=== PATIENT | male | born 1975 | race Caucasian/White ===

== ENCOUNTER 2016-10-23 09:39 | Emergency (ER) | payer BC ==
[2016-10-23] MEDS ORDERED: LORAZEPAM 1 MG TABLET PO ONE (11:22)
[2016-10-23] MEDS ORDERED: PROMETHAZINE HCL 25 MG TABLET PO ONE (11:22)
[2016-10-23] MEDS ORDERED: OXYCODONE-ACETAMINOPHEN 5-325 MG TABLET PO ONE (11:22)
--- NOTE | 2016-10-23 12:29 | ER Document Report ---
ED Neck/Back Problem - General Chief Complaint: Back Pain Stated Complaint: SHOULDER PAIN Notes: Patient is complaining of pain in the upper thoracic spine since he injured himself while weightlifting yesterday morning. Patient says he was doing a bilateral dumbbell curl and when he got up to the chest level he rotated his hands and did a press and as he was pressing upward, he felt a "pop" in the upper thoracic spine region with severe pain. He continues to have pain in that location, especially with moving his neck, but he does not have pain in his neck. He went to a local urgent care yesterday where he had plain x-rays done which were read by a PA on duty who advised him he needed to see an orthopedic surgeon. He was referred to Dr. Heredia, but patient was advised to come here today to be sure he doesn't have an injury requiring immediate care. I spoke with Dr. Heredia who requested that the patient have an MRI of the C- spine and T-spine. Besides the pain in the upper thoracic spine, "between my shoulder blades" and some pain in the lower neck and upper T-spine when he attempts to flex or move it, but more pain down in the area between his shoulder blades when he moves his head, the patient only describes having some numbness in the right arm if he raises that arm, such as putting that arm on the back of the passenger seat of the car while he is driving. While sitting still on the stretcher, the patient does not complain of the severe pain, but if he attempts to move, such as taking his shirt off, or to turn his head, he continues to have his primary pain in the upper and mid never had this problem or any problem with his spine in the past. Thoracic spine region. TRAVEL OUTSIDE OF THE [place] IN LAST 30 DAYS: No - Related Data Allergies/Adverse Reactions: haloperidol [From Haldol] Allergy (Verified 10/23/16 09:47) prochlorperazine [From Compazine] Allergy (Verified 10/23/16 09:47) Past Medical History - Social History Smoking Status: Never Smoker Cigarette use (# per day): No Chew tobacco use (# tins/day): No Frequency of alcohol use: Occasional Drug Abuse: None Family History: Reviewed & Not Pertinent Patient has suicidal ideation: No Patient has homicidal ideation: No Musculoskeltal Medical History: Denies Hx Arthritis - Immunizations Hx Diphtheria, Pertussis, Tetanus Vaccination: Yes Review of Systems - Review of Systems Notes: REVIEW OF SYSTEMS: CONSTITUTIONAL : Denies fever. EENT: Denies eye, ear, nose or mouth or throat pain or other symptoms. CARDIOVASCULAR: Denies chest pain. RESPIRATORY: Denies cough, chest congestion, or shortness of breath. GASTROINTESTINAL: Denies abdominal pain or nausea, vomiting, or diarrhea. GENITOURINARY: Denies difficulty or painful urinating, urinary frequency, blood in urine. MUSCULOSKELETAL: See history of present illness. Denies joint pain or swelling. SKIN: Denies rash or skin lesions. NEUROLOGICAL: Denies LOC or altered mental status. Denies headache. Denies sensory loss (except for the numbness of his right arm described in history of present illness) nor motor deficits. PSYCHIATRIC: Denies anxiety or stress. Denies depression. ALL OTHER SYSTEMS REVIEWED AND NEGATIVE. Physical Exam - Vital signs Vitals: Temp Pulse Resp BP Pulse Ox 98.1 F 79 22 H 153/114 H 98 10/23/16 09:47 10/23/16 09:47 10/23/16 09:47 10/23/16 09:47 10/23/16 09:47 Interpretation: Normal, Hypertensive - Moderate - Notes Notes: PHYSICAL EXAMINATION: GENERAL: Well-appearing, in no acute distress. Essentially normal vital signs, except for blood pressures moderately elevated. Patient appears to be in pain to move, to take off his jacket, etc. HEAD: Atraumatic, normocephalic. EYES: Pupils equal round and reactive to light, extraocular movements intact. ENT: oropharynx clear without exudates. Moist mucous membranes. NECK: Normal range of motion, supple. No posterior midline tenderness of the C- spine. LUNGS: Breath sounds clear and equal bilaterally. HEART: Regular rate and rhythm without murmurs. ABDOMEN: Soft, nontender. No guarding or rebound. BACK: Tender to palpate in the lower cervical and upper and mid thoracic spine region EXTREMITIES: Normal range of motion without pain. NEUROLOGICAL: Normal speech, normal gait. Normal sensory, motor, and reflex exams. Awake, alert, and oriented x3. Cranial nerves normal. SKIN: Warm, dry, no rashes. Course - Re-evaluation Re-evalutation: 10/23/16 12:33 I made several calls, including an urgent care that the patient did not go to, but learned that myself when I'm call the place twice. Then found the urgent care the patient did go to an talk to them and then finally spoke with Dr. Heredia. - Vital Signs Vital signs: Temp Pulse Resp BP Pulse Ox 98.1 F 79 16 153/114 H 98 10/23/16 09:47 10/23/16 09:47 10/23/16 11:10 10/23/16 09:47 10/23/16 09:47 - Diagnostic Test Radiology reviewed: Image reviewed, Reports reviewed - MRI of the C-spine and T- spine show some mild degenerative changes, but no acute processes. No malalignment of the vertebrae. No fractures. No significant spinal stenosis. Discharge - Discharge Clinical Impression: Thoracic back pain Qualifiers: Chronicity: acute Back pain laterality: midline Qualified Code(s): M54.6 - Pain in thoracic spine Cervical muscle strain Qualifiers: Encounter type: initial encounter Qualified Code(s): S16.1XXA - Strain of muscle, fascia and tendon at neck level, initial encounter Condition: Stable Disposition: HOME, SELF-CARE Additional Instructions: NECK INJURY (CERVICAL STRAIN): You have a neck strain. This is an injury to the muscles and ligaments in the neck. There is no evidence of a fracture of the neck bones. Also, no injury to the spinal cord or nerve roots was detected. Usually, stiffness and pain INCREASE for the first 24-48 hours after the injury. The pain will gradually resolve and the neck will become more mobile. Most patients are back at work or school within a few days. Typically, complete healing takes about two or three weeks. The usual initial treatment is rest and cold packs. A neck collar may be placed to keep the muscles of the neck at rest. Antiinflammatory and muscle relaxing medication are often used to reduce the spasm and irritation. You should call the doctor, or go to the hospital, if you develop numbness or weakness in any extremity, problems with your bladder or bowel, or pain radiating down the arms. MUSCLE STRAIN: You have strained a muscle -- torn the fibers within the muscle. This often occurs with strenuous exertion, or during an injury that suddenly stretches the muscle. The seriousness of a strain varies. Some strains heal within days, others cause problems for months. X-rays cannot show a muscle strain. X-rays are taken only if symptoms suggest that a fracture could be present. The usual treatment of a muscle strain is rest and ice packs. Sometimes, a sling, splint, or crutches may be necessary to rest the muscle. The muscle can be used again once pain subsides. Severe strains require a special exercise and stretching program to prevent permanent stiffness and disability. Your doctor will advise you if this will be necessary. Call the doctor immediately if pain or swelling becomes severe, or if numbness or discoloration develop. ICE PACKS: Apply ice packs frequently against the painful area. Many different schedules are recommended, such as "20 minutes on, 20 minutes off" or "one hour ice, two hours rest." If you need to work, you may need to go longer between ice treatments. You should plan to have the area ice packed AT LEAST one fourth of the time. The ice should be applied over the wrap, tape, or splint, or over a layer of cloth -- not directly against the skin. Some ice bags have a built-in cloth and can be put directly on the skin. WARM PACKS: After approximately two days, apply gentle heat (such as a heating pad or hot water bottle) for about 20 to 30 minutes about every two hours -- at least four times daily. Warmth and elevation will help you make a more rapid recovery , and will ease the pain considerably. Do not use HOT heat, and never apply heat for longer than 30 minutes. The continuous heat can invisibly damage skin and muscles -- even when no burn is seen on the surface. Damaged muscles can make you MORE sore. MUSCLE RELAXERS: Muscle relaxing medications are usually prescribed for acute muscle spasm or injury to the neck and back. They are often combined with antiinflammatory pain medication for increased relief. You may stop the muscle relaxer when the pain and stiffness have improved. Start the medication again if spasms recur. Muscle relaxers may cause drowsiness, especially with the first dose. Do not operate machinery or drive while under the effects of the medication. Most muscle relaxers last up to 24 hours. Do not combine the medication with alcohol. ORAL NARCOTIC MEDICATION: You have been given a prescription for pain control. This medication is a narcotic. It's best taken with food, as nausea can result if taken on an empty stomach. Don't operate machinery or drive within six hours of taking this medication. Do not combine this medicine with alcohol, or with any medication which can cause sedation (such as cold tablets or sleeping pills) unless you get permission from the physician. Narcotics tend to cause constipation. If possible, drink plenty of fluids and eat a diet high in fiber and fruits. FOLLOW-UP CARE: If you have been referred to a physician for follow-up care, call the physician s office for an appointment as you were instructed or within the next two days. If you experience worsening or a significant change in your symptoms, notify the physician immediately or return to the Emergency Department at any time for re-evaluation. Avoid any weight lifting that puts any stress at all on your back for at least 2 weeks. Then, resume lifting at a very light weight and gradually increase your weights over a several week time frame. Prescriptions: Oxycodone HCl/Acetaminophen [Percocet 5-325 mg Tablet] 1 - 2 tab PO Q4HP PRN # 25 tablet PRN Reason: Methocarbamol [Robaxin 500 mg Tablet] 1,000 mg PO QID #60 tablet Forms: Return to Work Referrals: ABHAY MERCADO MD [ASSOCIATE] - Follow up as needed
[2016-10-23 14:36] VITALS: BP 151/100
== END 2016-10-23 14:38 | disposition home or self-care (01) ==
LOC: ER 09:39
DX: S16.1XXA Strain of muscle, fascia and tendon at neck level, initial encounter (principal); M54.9 Dorsalgia, unspecified; M54.6 Pain in thoracic spine; M25.519 Pain in unspecified shoulder; X58.XXXA Exposure to other specified factors, initial encounter
CPT/HCPCS: 72141; 72146; 99283

== ENCOUNTER 2017-04-16 23:07 | Inpatient (IN) | payer BC ==
[2017-04-17] MEDS ORDERED: VANCOMYCIN HCL INJ 1000 MG VIAL IV ONE (00:01)
--- NOTE | 2017-04-17 00:14 | ER Document Report ---
ED General - General Chief Complaint: Arm Problem Stated Complaint: RIGHT ARM PAIN Time Seen by Provider: 04/16/17 23:56 Notes: 41-year-old male with a history of intravenous/injection methamphetamine use presents with right antecubital arm pain redness and swelling onset yesterday constant worsening associated with chills. He swears he has not used in 90 days but he did miss a vein at that time. He does not have any history of infection or endocarditis. TRAVEL OUTSIDE OF THE [place] IN LAST 30 DAYS: No - Related Data Allergies/Adverse Reactions: haloperidol [From Haldol] Allergy (Verified 10/23/16 09:47) prochlorperazine [From Compazine] Allergy (Verified 10/23/16 09:47) Past Medical History - General Information source: Patient - Social History Smoking Status: Current Some Day Smoker Drug Abuse: Methamphetamine Family History: Reviewed & Not Pertinent Patient has suicidal ideation: No Patient has homicidal ideation: No Renal/ Medical History: Denies: Hx Peritoneal Dialysis Musculoskeltal Medical History: Denies Hx Arthritis - Immunizations Hx Diphtheria, Pertussis, Tetanus Vaccination: Yes Review of Systems - Review of Systems Notes: REVIEW OF SYSTEMS GEN: Fever ENT: Denies sore throat, nasal discharge, ear pain EYES: Denies blurry vision, eye pain, discharge CV: Denies chest pain, palpitations, edema RESP: Denies cough, shortness of breath, wheezing GI: Denies abdominal pain, nausea, vomiting, diarrhea MSK: Right arm swelling, SKIN: Denies rash, skin lesions LYMPH: Denies swollen glands/lymph nodes NEURO: Denies headache, focal weakness or numbness, dizziness PSYCH: Denies depression, suicidal or homicidal ideation PHYSICAL EXAMINATION General: No acute distress, well-nourished Head: Atraumatic, normocephalic ENT: Mouth normal, oropharynx moist, no exudates or tonsillar enlargement Eyes: Conjunctiva normal, pupils equal, lids normal Neck: No JVD, supple, no guarding CVS: Normal rate, regular rhythm, no murmurs Resp: No resp distress, equal and normal breath sounds bilaterally GI: Nondistended, soft, no tenderness to palpation, no rebound or guarding Ext: Swelling firmness, erythema and warmth of the distal biceps and antecubital area extending to the mid forearm. Compartments are soft with no pain with passive wrist flexion extension. Tenderness in the same area. No fluctuance. Distal pulses intact, distal finger movement intact. Able to range elbow without much pain. Back: No CVA or midline TTP Skin: No rash, warm Lymphatic: No lymphadeopathy noted Neuro: Awake, alert. Face symmetric. GCS 15. Normal sensation in right hand. Physical Exam - Vital signs Vitals: Temp Pulse Resp BP Pulse Ox 99.2 F 94 18 133/83 H 97 04/16/17 23:17 04/16/17 23:17 04/16/17 23:17 04/16/17 23:17 04/16/17 23:17 Course - Re-evaluation Re-evalutation: 04/17/17 00:12 41-year-old male [id number] presents with cellulitis and possible abscess of the right antecubital area. Differential considerations include myositis, less likely necrotizing soft tissue infection given his normal vital signs and his lack of pain out of proportion. I will obtain a formal ultrasound to rule out drainable abscess but my bedside ultrasound does not show one. Will elevate aggressively get labs cultures give vancomycin and morphine, and we will need admission for aggressive antibiotic therapy. 04/17/17 00:13 04/17/17 01:05 Labs show mild leukocytosis. Otherwise normal. Feeling better after morphine. Elevated arm. Ultrasound does not show abscess. X-ray negative. Admitted to Dr. Andre at approximately 1 AM he asked except as a full admission to telemetry. - Vital Signs Vital signs: Temp Pulse Resp BP Pulse Ox 99.2 F 94 18 133/83 H 97 04/16/17 23:17 04/16/17 23:17 04/16/17 23:17 04/16/17 23:17 04/16/17 23:17 - Laboratory Result Diagrams: 04/17/17 00:15 Laboratory results interpreted by me: 04/17/17 00:15 WBC 12.3 H Seg Neutrophils % 84.5 H Lymphocytes % 6.5 L Absolute Neutrophils 10.4 H - Diagnostic Test Radiology reviewed: Image reviewed, Reports reviewed Procedures - Ultrasound/Bedside Ultrasound/Bedside Time completed: 00:13 Notes: 04/17/17 00:14 Bedside soft tissue ultrasound of the right arm. Images obtained in 2 planes of the distal biceps and antecubital area. Soft tissue changes consistent with cellulitis are noted. No drainable abscess collection was visualized. Patient tolerated procedure well. Unable to attach images. Discharge - Discharge Clinical Impression: Cellulitis of right arm Condition: Good Disposition: ADMITTED INPATIENT Admitting Provider: Hospitalist Unit Admitted: Telemetry
[2017-04-17] MEDS ORDERED: MORPHINE SULFATE 10 MG/ML INJ IV ONE (00:21)
[2017-04-17 00:31] LABS: ABSOLUTE BASOPHILS # (AUTO) 0.1 10^3/uL (0.0-0.2); ABSOLUTE LYMPHOCYTES (AUTO) 0.8 10^3/uL (0.5-4.7); ABSOLUTE NEUT (AUTO) 10.4 10^3/uL (1.7-8.2); BASOPHILS % (AUTO) 0.4 % (0-2); EOSINOPHILS % (AUTO) 0.4 % (0-6); HEMATOCRIT 43.6 % (37.9-51.0); HEMOGLOBIN 15.1 g/dL (13.5-17.0); HGB HCT DIFFERENCE 1.7; LYMPHOCYTES % (AUTO) 6.5 % (13-45); MEAN CORPUSCULAR HGB CONC 34.6 g/dL (32.0-36.0); MEAN CORPUSCULAR VOLUME 89 fl (80-97); MONOCYTES % (AUTO) 8.2 % (3-13); RED BLOOD COUNT 4.87 10^6/uL (4.35-5.55); RED CELL DISTRIBUTION WIDTH 12.8 % (11.5-14.0); SEGMENTED NEUTROPHILS % (AUTO) 84.5 % (42-78); WHITE BLOOD COUNT 12.3 10^3/uL (4.0-10.5)
--- NOTE | 2017-04-17 00:59 | RADIOLOGY REPORT (SQ) ---
EXAM DESCRIPTION: ELBOW RIGHT AP/LAT COMPLETED DATE/TIME: 04/17/2017 12:35 am REASON FOR STUDY: ac ABSCESS, R/O NEEDLE/GAS COMPARISON: None. NUMBER OF VIEWS: Four views. TECHNIQUE: AP, lateral, and both oblique radiographic images acquired of the right elbow. LIMITATIONS: None. FINDINGS: MINERALIZATION: Normal. BONES: No acute fracture or dislocation. No worrisome bone lesions. Slight osteophyte of the corono id, right ulnar olecranon. JOINT: No effusion. SOFT TISSUES: No soft tissue swelling. No radiopaque foreign body/ needle, and no significant soft t issue emphysema, as queried. OTHER: No other significant finding. IMPRESSION: NEGATIVE STUDY OF THE RIGHT ELBOW. NO RADIOGRAPHIC EVIDENCE OF ACUTE INJURY. TECHNICAL DOCUMENTATION: JOB ID: [id number] [email or web address]- All Rights Reserved
[2017-04-17] MEDS ORDERED: DIPH/PERTUSS(ACELL)/TETANUS VAC/PF 0.5 ML SYR (>=10YO) IM ONE (01:03)
[2017-04-17] MEDS ORDERED: CEFAZOLIN INJ 1 GM VIAL IV ONE (01:05)
--- NOTE | 2017-04-17 01:11 | RADIOLOGY REPORT (SQ) ---
EXAM DESCRIPTION: U/S EXTREMITY NONVASCULAR LTD COMPLETED DATE/TIME: 04/17/2017 12:43 am REASON FOR STUDY: CELLULITIS VS. ABSCESS R AC COMPARISON: None. TECHNIQUE: Static and real time simmons scale ultrasound Doppler spectral analysis, and color Doppler a cquired in the area of symptomatology marked, right arm mid. LIMITATIONS: None. FINDINGS: SOFT TISSUES: No masses. Mild -moderate edema consistent with cellulitis. No evidence of abscess. OTHER:No other significant findings. IMPRESSION: Mild -moderate edema in an area of indicated symptomatology of the right upper extremity /arm. No sonographic evidence of abscess or mass. TECHNICAL DOCUMENTATION: JOB ID: [id number] [email or web address]- All Rights Reserved
[2017-04-17 01:13] LABS: ADD ON TESTING BLD IN LAB ACKNOWLEDGE
[2017-04-17 01:21] LABS: ALANINE AMINOTRANSFERASE 80 U/L (21-72); ALBUMIN 3.9 g/dL (3.5-5.0); ALCOHOL < 10 mg/dL (NONE DETECTED); ALKALINE PHOSPHATASE 48 U/L (38-126); ANION GAP 11 (5-19); ASPARTATE AMINO TRANSFERASE 39 U/L (17-59); BILIRUBIN,DIRECT 0.3 mg/dL (0.0-0.4); BILIRUBIN,TOTAL 0.7 mg/dL (0.2-1.3); BLOOD UREA NITROGEN 19 mg/dL (7-20); CALCIUM 9.2 mg/dL (8.4-10.2); CARBON DIOXIDE 33 mmol/L (22-30); CHLORIDE 93 mmol/L (98-107); CREATININE RESULT 0.94 mg/dL (0.52-1.25); GLUCOSE 80 mg/dL (75-110); MAGNESIUM 1.7 mg/dL (1.6-2.3); POTASSIUM 4.3 mmol/L (3.6-5.0); SODIUM 136.7 mmol/L (137-145)
[2017-04-17] MEDS ORDERED: NICOTINE 7 MG/24 HR PATCH.TD24 TD PRN (02:32)
[2017-04-17] MEDS ORDERED: ACETAMINOPHEN 325 MG TABLET PO PRN (02:34)
[2017-04-17] MEDS ORDERED: OXYCODONE HCL IR 5 MG TABLET PO PRN (02:34)
[2017-04-17] MEDS ORDERED: MAGNESIUM HYDROXIDE SUSP 30 ML UDCUP PO PRN (02:36)
[2017-04-17] MEDS ORDERED: VANCOMYCIN HCL 0 MG in DEXTROSE 5%-WATER 250 ML IV NR (02:45)
[2017-04-17] MEDS ORDERED: CEFAZOLIN 1 GM/D5W RTU 1 GM/50 ML RTUPB IV ONE (03:00)
--- NOTE | 2017-04-17 03:04 | PDOC H&P ---
History of Present Illness Admission Date/PCP: 04/17/17 01:16 Primary care provider none Patient complains of: Right arm pain and swelling History of Present Illness: DRE BALL is a 41 year old male with history of intravenous methamphetamine use, but by his account to both myself and emergency room physician, no use for the past 3-4 months, who presents to the emergency room for evaluation of approximately 24 hour history of increasing redness pain and swelling involving his right upper extremity. Area started in the right antecubital fossa and has progressed. Prominent throbbing and sharp pain, which increases with much of any movement of the extremity, and certainly with any contact with the area of involvement. Positive associated shaking chills. No nausea vomiting, diarrhea or dysuria. Denies any trauma to the site. Patient has been discussed with emergency room physician who evaluated the patient. . Dictation via voice recognition software. Laboratory results are listed in [facility] and are reviewed. X-ray summary results are listed below, with full report(s) reviewed. . Social history/personal habits: Single. Has children. Works at a local [employer]. Chews tobacco. Fifth of whiskey every 2-3 weeks. Marijuana use along with the above-noted history of methamphetamine use. Allergies/adverse reactions are listed in [facility] and are reviewed. Home medications none REVIEW OF SYSTEMS: Constitutional: See history and present illness. Eyes: No vision complaints. ENT: No swallowing problems or complaints. Denies hearing loss. Pulmonary: No current complaints. Cardiovascular: No current complaints, including chest pain. Gastrointestinal: No current complaints, including nausea or vomiting. Skin: See history and present illness. Hematologic: Denies easy bruising. Neurologic: No current complaints, including numbness or tingling. Musculoskeletal: See history and present illness. Psychiatric: Denies anxiety or depression. Endocrine: No current complaints, including polyuria. Genitourinary: No current complaints, including dysuria. PHYSICAL EXAMINATION: 5 feet 6 inches tall. 76.3 kg. BMI 27.1 kg/m. Blood pressure 127/83. 90% saturation on room air. Respirations are 20 and unlabored. Pulse 94 and regular. 99.3 temperature. Slightly overweight but also somewhat stocky otherwise well-developed male appearing approximately his stated age. Pleasant awake alert and cooperative. Appears to feel a bit under the weather, so to speak, primarily due to right upper extremity discomfort and pain. Skin is warm and dry. No grossly obvious evidence of rash in areas of skin examined. No subcutaneous nodules palpated. Extensive upper extremity tattoos. ENT: Hearing grossly normal to normal conversation. Tongue midline on protrusion pink and slightly moist. Eyes: No scleral icterus. Pupils equal and reactive to light at 4 mm. [place] conjunctivae. Neck is supple and nontender to gentle active range of motion and palpation. Midline trachea. No palpable thyroid nodule mass enlargement or tenderness. Lymphatic: No palpable cervical or clavicular nodes. Neck and lymphatic exams limited by patient body habitus. Psychiatric: Reasonable insight into acute and chronic medical issues. Oriented to time location and why here. Lungs: Auscultation reveals clear and equal breath sounds bilaterally. No use of accessory respiratory muscles. Cardiovascular: Heart regular rate and rhythm, without gallop murmur or rub. No carotid or abdominal aortic bruits. No ankle edema. Abdomen:soft slightly distended nontender with positive bowel sounds. Unable to adequately evaluate abdomen for masses or organomegaly due to distention. Extremities: No calf tenderness to compression. No grossly obvious visual evidence of calf swelling. Gentle manipulation of lower extremities fails to reveal any obvious evidence of injury or instability to knees hips or ankles. Right upper extremity exam reveals mild to moderate cellulitis extending from the lower half of the upper arm through the proximal two thirds of the forearm, primarily on the volar surface. Mild soft tissue swelling. Mild to moderate tenderness. No crepitus fluctuance or expressible discharge. No evidence of compartment syndrome. Easily palpable right radial pulse. Neurologic: Moves left upper extremity grossly normally; decreased range of motion right upper extremity at elbow due to area of involvement.. Patellar reflexes absent. Dorsiflexion and plantarflexion of feet 5 / 5 and symmetric. Light touch is intact and symmetric with fingertips of both hands, as is handgrip. Past Medical History Cardiac Medical History: Denies: Atrial Fibrillation, Congestive Heart Failure, Coronary Artery Disease, DVT, Myocardial Infarction, Hyperlipidema, Hypertension, Pulmonary Embolism Pulmonary Medical History: Denies: Asthma, Chronic Obstructive Pulmonary Disease (COPD), Sleep Apnea EENT Medical History: Denies: Eyes, Ears, Throat Neurological Medical History: Reports: Seizures - Childhood epilepsy; 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 No antiepileptic. Denies: Hemorrhagic CVA, Ischemic CVA Endocrine Medical History: Denies: Diabetes Mellitus Type 1, Diabetes Mellitus Type 2, Hyperthyroidism, Hypothyroidism Renal/ Medical History: Reports: None GI Medical History: Denies: Cirrhosis, Gastroesophageal Reflux Disease, Hepatitis, Peptic Ulcer Disease Musculoskeltal Medical History: Denies: Arthritis Skin Medical History: Reports: None Psychiatric Medical History: Reports: Substance Abuse, Tobacco Dependency Denies: Alcohol Dependency, Depression, General Anxiety Disorder Hematology: Reports: None Infectious Medical History: Reports: Clostridium Difficile Denies: Hepatitis B, Hepatitis C, Methicillin-Resistant Staph Aureus Past Surgical History Past Surgical History: Reports: Other - [place] teeth extraction Social History Information Source: Patient, Emergency Med Personnel, [facility] Records Smoking Status: Unknown if Ever Smoked - Chews tobacco. Frequency of Alcohol Use: Heavy - Fifth of whiskey every 2-3 weeks. Hx Recreational Drug Use: Yes Drugs: Marijuana, Other - Methamphetamine - Advance Directive Resuscitation Status: Full Code Surrogate healthcare decision maker:: Brother Manjinder Family History Family History: Reviewed & Not Pertinent Parental Family History Reviewed: Yes - Parents ; mother many health problems; uncertain father's problems Children Family History Reviewed: Yes - Healthy Sibling(s) Family History Reviewed.: Yes - Healthy Medication/Allergy Home Medications: Sulfamethoxazole/Trimethoprim [Bactrim Ds Tablet] 1 each PO BID #20 tablet 04/19 Sulfamethoxazole/Trimethoprim [Bactrim Ds Tablet] 1 each PO BID #20 tablet 04/20 Allergies/Adverse Reactions: haloperidol [From Haldol] Adverse Reaction (Verified 04/20/17 14:37) Dystonia prochlorperazine [From Compazine] Adverse Reaction (Verified 04/20/17 14:37) Dystonia Physical Exam Vital Signs: Temp Pulse Resp BP Pulse Ox 99.2 F 86 20 128/86 H 98 04/16/17 23:17 04/17/17 02:25 04/17/17 02:25 04/17/17 02:25 04/17/17 02:25 Results Impressions: Elbow X-Ray 04/17/17 00:01 IMPRESSION: NEGATIVE STUDY OF THE RIGHT ELBOW. NO RADIOGRAPHIC EVIDENCE OF ACUTE INJURY. Extremity Ultrasound 04/17/17 00:08 IMPRESSION: Mild -moderate edema in an area of indicated symptomatology of the right upper extremity/arm. No sonographic evidence of abscess or mass. Assessment & Plan - Diagnosis (1) Cellulitis of right arm Is this a current diagnosis for this admission?: YesPlan: Keep right arm elevated above level of heart. Ancef and intravenous vancomycin ; pharmacy to assist with vancomycin dosing. Orthopedic consult. I have strongly encouraged patient to be careful getting out of bed without notifying staff, to avoid a fall with injury. Knee high SCDs for DVT prophylaxis, along with subcutaneous Lovenox. Impression and plans were discussed with patient who concurs. Time spent in evaluation and management of patient: 66 minutes. (2) DVT prophylaxis Is this a current diagnosis for this admission?: Yes (3) History of methamphetamine use Is this a current diagnosis for this admission?: YesPlan: Urine drug screen. (4) Tobacco dependency Is this a current diagnosis for this admission?: YesPlan: As needed nicotine patch. (5) Alcohol use Is this a current diagnosis for this admission?: YesPlan: Daily thiamine, multivitamin, and folic acid. Observe closely for evidence of withdrawal. None at present. - Time Time Spent: 50 to 70 Minutes Medications reviewed and adjusted accordingly: Yes Anticipated discharge: Home Within: within 72 hours - Inpatient Certification Based on my medical assessment, after consideration of the patient's comorbidities, presenting symptoms, or acuity I expect that the services needed warrant INPATIENT care.: Yes I certify that my determination is in accordance with my understanding of Medicare's requirements for reasonable and necessary INPATIENT services [42 CFR 412.3e].: Yes Medical Necessity: Need Close Monitoring Due to Risk of Patient Decompensation, Need for IV Antibiotics, Risk of Complication if Not Cared For in Hospital Post Hospital Care: D/C or Transfer Summary
[2017-04-17] MEDS ORDERED: THIAMINE HCL 100 MG TABLET PO ONE (03:30)
[2017-04-17 04:04] LABS: URINE BARBITURATES SCREEN NEGATIVE; URINE METHADONE SCREEN NEGATIVE; URINE PHENCYCLIDINE SCREEN NEGATIVE
[2017-04-17 04:08] LABS: URINE OPIATES LOW UNCONFIRMED POSITIVE
[2017-04-17 06:55] LABS: ABSOLUTE EOSINOPHILS # (AUTO) 0.1 10^3/uL (0.0-0.6); ABSOLUTE LYMPHOCYTES (AUTO) 0.9 10^3/uL (0.5-4.7); ABSOLUTE MONOCYTES (AUTO) 1.1 10^3/uL (0.1-1.4); ABSOLUTE NEUT (AUTO) 10.2 10^3/uL (1.7-8.2); BASOPHILS % (AUTO) 0.3 % (0-2); HEMATOCRIT 43.5 % (37.9-51.0); HGB HCT DIFFERENCE 1.5; LYMPHOCYTES % (AUTO) 7.2 % (13-45); MEAN CORPUSCULAR HEMOGLOBIN 30.8 pg (27.0-33.4); MEAN CORPUSCULAR HGB CONC 34.5 g/dL (32.0-36.0); MEAN CORPUSCULAR VOLUME 89 fl (80-97); MONOCYTES % (AUTO) 8.9 % (3-13); RED BLOOD COUNT 4.88 10^6/uL (4.35-5.55); RED CELL DISTRIBUTION WIDTH 12.5 % (11.5-14.0); SEGMENTED NEUTROPHILS % (AUTO) 82.6 % (42-78); WHITE BLOOD COUNT 12.3 10^3/uL (4.0-10.5)
--- NOTE | 2017-04-17 08:32 | Progress Note ---
Provider Note Provider Note: HELADIOMARIEBUTCH ERICKSON Search Criteria: Last Name 'Dave' and First Name 'dre' and = ' and Request Period = 10/19/16' to 04/17/17' - 3 out of 3 Recipients Selected. Fill Date Product, Str, Form Qty Days Pt ID Prescriber Written RX# N/R* Pharm MED+ ------ ---- --------- --- ------- ----- --------- ------ 11/24/2016 TRAMADOL HCL 50 MG TABLET 30.00 30 [id number] 11/24/2016 [id number] N [id number] 05.0 11/13/2016 TRAMADOL HCL 50 MG TABLET 10.00 10 [id number] 11/13/2016 [id number] N [id number] 05.0 10/23/2016 OXYCODONE-ACETAMINOPHEN 5-325 25.00 4 [id number] 10/23/2016 [id number] N [id number] 46.88 10/22/2016 HYDROCODON-ACETAMINOPHEN 5-325 20.00 5 [id number] 10/22/2016 [id number] N [id number] 20.0 [id number] OMAR URIOSTEGUI; [address] [place] [id number] DRE LANDA MD; [address] [facility], [place] [id number] DRE LEONARD; [facility], [address] [place], [place] [id number] ROSA GANT; [facility], [address] [facility], [address], [place] [id number]
[2017-04-17] MEDS ORDERED: KETOROLAC TROMETHAMINE INJ/PF 30 MG/1 ML SDV IV ONE (08:42)
--- NOTE | 2017-04-17 09:19 | PROGRESS NOTE E ---
Progress Note NAME: DRE BALL : 1975 AGE: 41Y DATE: 04/17/2017 ROOM: 434 SUBJECTIVE: The patient is lying in bed. He was a little groggy when I woke him up. The patient stated that he was sleepy. He stated that the pain was the same in his arm as in comparison to when he came in, in spite of getting antibiotics overnight. The patient has asked for a regular diet as well. The patient denies any nausea, vomiting, diarrhea. No shortness of breath, dizziness, chest pain. No fevers, chills. Patient has been afebrile. His blood pressures have been in a good range, and the patient does not voice any other concerns at this time. REVIEW OF SYSTEMS: Rest of review of systems negative. MEDICATIONS: Medications have been reviewed. OBJECTIVE: GENERAL: The patient is a 41-year-old male who is awake, alert, and oriented to person, place, time, and situation. He is verbal, conversational, does not appear to be in acute distress. VITAL SIGNS: Temperature is 98.5, pulse 91, respirations 14, blood pressure 122/72, oxygen saturation 97% on room air. SKIN: Warm and dry. No rash. She is not diaphoretic. HEENT: Pupils equal, round, and reactive to light and accommodation. Conjunctiva pink. No JVP. CARDIOVASCULAR SYSTEM: Heart is regular. There is no murmur or rub. CHEST: Clear, symmetrical, unlabored. ABDOMEN: Soft, nontender, nondistended. BACK: No CVA tenderness or sacral edema. EXTREMITIES: No clubbing, cyanosis. The patient's right upper extremity, there is redness noted, especially over the antecubital with evidence of deep tissue cellulitis. PSYCHIATRIC: The patient is pretty apathetic. DIAGNOSTICS: Lab values are as follows: Hematology obtained on 04/17/2017: WBCs are 2.3, hemoglobin is 15.0, hematocrit is 43.5, platelet count is 207,000. Chemistry obtained on 04/17/2017: Sodium is 136, potassium 4.3, chloride is 93, carbon dioxide 33, BUN 19, creatinine is 0.94, glucose 80, calcium is 9.2, magnesium is 1.7. Bilirubin is 0.7, AST 39, ALT is 80, Alk phos 48, total protein 7.0, albumin 3.9. Toxicology obtained on 04/17/2017: Opiates are positive, benzos are positive, marijuana is positive. Amphetamines are unable to be assessed due to the poly positives. Blood cultures obtained on 04/17/2017 are pending. IMPRESSION AND PLAN: 1. RIGHT UPPER EXTREMITY CELLULITIS. Will continue coverage. The patient denies a history of MRSA, however, have a high suspicion of this. Therefore, will continue vancomycin. Do appreciate orthopedic input with this. Will keep arm elevated. Will schedule Toradol for inflammation and pain relief and follow. 2. POLYSUBSTANCE ABUSE, INCLUDING OPIATES, BENZOS, AMPHETAMINES, AND THC. Will monitor for evidence of withdrawals. Add p.r.n. benzodiazepines and will discuss treatment goals with the patient follow. 3. TOBACCO DEPENDENCY. Spent 3 minutes discussing smoking cessation, education. The patient has no desire to quit smoking at this time. Will add p.r.n. nicotine patch and follow. 4. DVT PROPHYLAXIS. Will add subcu Lovenox. DISPOSITION: The patient is a FULL CODE. Pending patient's symptomatology and diagnostic findings, will re-evaluate in the a.m. Time spent on this followup including assessment, plan, physical examination, and patient education, review of previous records is 35 minutes. DICTATING PHYSICIAN: TORIBIO MANTILLA NP [id number] [id number] PHY#: [id number] ID: [id number] JOB#: [id number] ACCT: [id number] cc: >
[2017-04-17] MEDS: CEFAZOLIN 1 GM/D5W RTU 1 GM/50 ML RTUPB IV SCH ×2 (09:35→17:59)
[2017-04-17] MEDS: THIAMINE HCL 100 MG TABLET PO SCH (09:36)
[2017-04-17] MEDS: MULTIVITAMIN TABLET PO SCH (09:36)
[2017-04-17] MEDS: FOLIC ACID 1 MG TABLET PO SCH (09:36)
[2017-04-17] MEDS: KETOROLAC TROMETHAMINE INJ/PF 30 MG/1 ML SDV IV SCH ×3 (09:37→20:35)
[2017-04-17] MEDS: DOCUSATE SODIUM 100 MG CAPSULE PO SCH ×2 (09:37→17:58)
[2017-04-17] MEDS: ENOXAPARIN SODIUM INJ 40 MG/0.4 ML DISP.SYRIN SUBCUT SCH (09:38)
[2017-04-17] MEDS: TRAMADOL HCL 50 MG TABLET PO PRN ×3 (09:44→18:18)
[2017-04-17] MEDS: VANCOMYCIN HCL 1,250 MG in DEXTROSE 5%-WATER 250 ML IV SCH (13:40)
[2017-04-18] MEDS: VANCOMYCIN HCL 1,250 MG in DEXTROSE 5%-WATER 250 ML IV SCH ×2 (01:42→12:44)
[2017-04-18] MEDS: CEFAZOLIN 1 GM/D5W RTU 1 GM/50 ML RTUPB IV SCH ×3 (03:40→17:45)
[2017-04-18] MEDS: KETOROLAC TROMETHAMINE INJ/PF 30 MG/1 ML SDV IV SCH ×4 (03:41→21:07)
[2017-04-18] MEDS: TRAMADOL HCL 50 MG TABLET PO PRN (05:38)
[2017-04-18] MEDS ORDERED: SUCCINYLCHOLINE CHLORIDE INJ 200 MG/10 ML VIAL ONE (08:36)
[2017-04-18] MEDS: THIAMINE HCL 100 MG TABLET PO SCH (09:01)
[2017-04-18] MEDS: DOCUSATE SODIUM 100 MG CAPSULE PO SCH ×2 (09:01→17:46)
[2017-04-18] MEDS: MULTIVITAMIN TABLET PO SCH (09:01)
[2017-04-18] MEDS: ENOXAPARIN SODIUM INJ 40 MG/0.4 ML DISP.SYRIN SUBCUT SCH (09:02)
[2017-04-18] MEDS: FOLIC ACID 1 MG TABLET PO SCH (09:02)
--- NOTE | 2017-04-18 09:34 | PROGRESS NOTE E ---
Progress Note NAME: DRE BALL : 1975 AGE: 41Y DATE: 04/18/2017 ROOM: 403 SUBJECTIVE: The patient is currently lying in bed. He states that his arm is not as stiff as it was yesterday, but it continues to be quite painful. Patient denies any nausea, vomiting, diarrhea. No shortness of breath or chest pain. No fevers, chills. Patient has been afebrile. His blood pressure has been in a good range. Patient does not voice any other concerns at this time. REVIEW OF SYSTEMS: Rest of review of systems negative. MEDICATIONS: Medications have been reviewed. OBJECTIVE: GENERAL: The patient is a 41-year-old male who is awake, alert, and oriented to person, place, time, and situation. He is verbal, conversational, does not appear to be in acute distress. VITAL SIGNS: Temperature is 98.1, pulse 82, respirations 18, blood pressure 128/80, oxygen saturation 98% on room air. SKIN: Warm and dry. No rash. He is not diaphoretic. HEENT: Pupils equal, round, and reactive to light and accommodation. Conjunctivae pink. No JVP. CARDIOVASCULAR SYSTEM: Heart is regular. There is no murmur or rub. CHEST: Clear, symmetrical, unlabored. ABDOMEN: Soft, nontender, nondistended. BACK: No CVA tenderness or sacral edema. EXTREMITIES: No clubbing, cyanosis. At the patient's right antecubital region there is evidence of redness and tightness which may correlate with underlying abscess with pustules noted at most likely an injection site. DIAGNOSTICS: Lab values are as follows: Hematology obtained on 04/17/2017: WBCs are 12.3, hemoglobin is 15.0, hematocrit is 43.5, platelet count is 207,000. Chemistry obtained on 04/17/2017: Sodium is 136, potassium 4.3, chloride is 93, carbon dioxide 33, BUN 19, creatinine is 0.94, glucose 80, calcium is 9.2, magnesium is 1.7. Bilirubin is 0.7, AST 39, ALT is 80, Alk phos 48, total protein 7.0, albumin 3.9. IMPRESSION AND PLAN: 1. RIGHT UPPER EXTREMITY CELLULITIS. The patient's ultrasound did not reveal any definite abscess, however, in spite of 24 hours of IV antibiotics the areas are reddened and pustules are now noted. I do have a high suspicion for this. Will continue vancomycin as he is high risk for MRSA, but fortunately blood cultures have been negative. Will continued scheduled Toradol for inflammation and pain relief. Will consult Surgery as this may require I and D. 2. POLYSUBSTANCE ABUSE, INCLUDING BENZODIAZEPINES, AMPHETAMINES, AND THC. Will monitor for evidence of withdrawals. At this time, the patient is comfortable. 3. TOBACCO DEPENDENCY. Will continue p.r.n. nicotine patch. 4. DEEP VENOUS THROMBOSIS PROPHYLAXIS. Will continue subcutaneous Lovenox. DISPOSITION: The patient is a FULL CODE. Pending patient's symptomatology and diagnostic findings, will re-evaluate in the a.m. Time spent on this followup including assessment, plan, physical examination, and patient education, and specialty collaboration is 25 minutes. DICTATING PHYSICIAN: TORIBIO MANTILLA NP [id number] [id number] PHY#: [id number] ID: [id number] JOB#: [id number] ACCT: [id number] cc: >
--- NOTE | 2017-04-18 12:18 | CONSULTATION REPORT E ---
Consultation Report NAME: DRE BALL : 1975 AGE: 41Y DATE: 04/18/2017 ROOM: 403 A TO: CICI WEBB M.D. FROM: DELIA RAMIREZ M.D. Requesting Physician HISTORY OF PRESENT ILLNESS: A 41-year-old male patient with a consultation for evaluation and management of right arm cellulitis. The patient is admitted with a history of swelling and pain in the right forearm antecubital area for the last 2 days. Patient unable to give any clear history how it started. He denies any history of IV drug abuse and denies any history of insect bite. He woke up with swelling and pain in that area. PAST MEDICAL HISTORY: The patient's past medical problems: No major medical issues. PAST SURGICAL HISTORY: None. REVIEW OF SYSTEMS: as per exam PHYSICAL EXAMINATION: GENERAL: A gentleman not in any distress, afebrile. HEAD AND NECK: No lymphadenopathy. No masses. CHEST AND LUNGS: Both lungs are clear to auscultation. CARDIOVASCULAR: Both heart sounds regular. No murmurs. No gallops. ABDOMEN: Soft abdomen and nontender. No masses palpable. No hernia. EXTREMITIES: Warm. Well perfused. His right upper extremity around the elbow, antecubital area, there is swelling and induration with tenderness present, which is indicative of cellulitis. Distally, the forearm appears to be normal . No neurovascular deficits. IMPRESSION: Cellulitis of the antecubital area, along with abscess formation. PLAN: Continue antibiotic, n.p.o. Will plan for incision and drainage of this area. DICTATING PHYSICIAN: CICI WEBB M.D. [id number] PHY#: [id number] ID: [id number] JOB#: [id number] ACCT: [id number] cc:CICI WEBB M.D. > BERTIN
[2017-04-18] MEDS ORDERED: RINGERS SOLUTION,LACTATED 1,000 ML IV PRN (12:24)
[2017-04-18] MEDS ORDERED: FENTANYL CITRATE INJ/PF 250 MCG/5 ML AMPULE ONE (14:10)
[2017-04-18] MEDS ORDERED: MIDAZOLAM 2 MG/2 ML INJ ONE (14:10)
[2017-04-18] MEDS ORDERED: ONDANSETRON HCL INJ/PF 4 MG/2 ML SDV ONE (14:10)
[2017-04-18] MEDS ORDERED: LIDOCAINE 2% INJ-PF (20 MG/ML) 10 ML AMPUL ONE (14:10)
[2017-04-18] MEDS ORDERED: DEXAMETHASONE SOD PHOSPHATE INJ 4 MG/1 ML VIAL ONE (14:10)
[2017-04-18] MEDS ORDERED: PROPOFOL INJ 200 MG/20 ML VIAL IV ONE (14:11)
[2017-04-18] MEDS ORDERED: ACETAMINOPHEN 100 ML IV ONE (14:11)
[2017-04-18] MEDS ORDERED: DIPHENHYDRAMINE HCL 50 MG/ML VIAL IV PRN (15:19)
[2017-04-18] MEDS ORDERED: PROMETHAZINE HCL INJ 25 MG/1 ML VIAL IV PRN ×2 (15:19)
[2017-04-18] MEDS ORDERED: ONDANSETRON HCL INJ/PF 4 MG/2 ML SDV IV PRN (15:19)
[2017-04-18] MEDS ORDERED: MORPHINE SULFATE 10 MG/ML INJ IV PRN (15:19)
[2017-04-18] MEDS ORDERED: OXYCODONE-ACETAMINOPHEN 5-325 MG TABLET PO PRN ×2 (15:19)
[2017-04-18] MEDS ORDERED: FENTANYL CITRATE INJ/PF 100 MCG/2 ML AMPUL IV PRN ×3 (15:19)
[2017-04-18] MEDS ORDERED: MEPERIDINE HCL/PF INJ 25 MG/1 ML DISP.SYRIN IV PRN (15:19)
--- NOTE | 2017-04-18 16:08 | OPERATIVE REPORT E ---
Operative Report NAME: DRE BALL : 1975 AGE: 41Y DATE OF SURGERY: 04/18/2017 ROOM: 403 PREOPERATIVE DIAGNOSIS: Right forearm abscess. POSTOPERATIVE DIAGNOSIS: Right forearm abscess. OPERATION: Incision and drainage of the right forearm abscess. SURGEON: CICI WEBB M.D. ANESTHESIA: General. ESTIMATED BLOOD LOSS: Minimal. TISSUE REMOVED OR ALTERED: Specimen sent for culture and sensitivity. INDICATION: Right forearm abscess needing to be drained. DESCRIPTION OF OPERATION: The patient was kept in a supine position under general anesthesia. Right arm around the antecubital area cleaned and draped as sterile field, and just above the of antecubital fossa an about 1 cm elliptical incision was made. Underlying thick pus was drained. Part of the pus was sent for culture and sensitivity, and the entire wound was copiously irrigated and suctioned out, completely thoroughly hemostatic. Dressings were applied. The patient , was taken to recovery room in stable condition. DICTATING PHYSICIAN: CICI WEBB M.D. [id number] PHY#: [id number] ID: [id number] JOB#: [id number] ACCT: [id number] cc:CICI WEBB M.D. > [facility]
[2017-04-18] MEDS ORDERED: HYDROCODONE/ACETAMINOPHEN 5-325 MG TABLET PO PRN (16:52)
[2017-04-19 01:13] LABS: CREATININE RESULT 0.75 mg/dL (0.52-1.25)
[2017-04-19] MEDS: VANCOMYCIN HCL 1,250 MG in DEXTROSE 5%-WATER 250 ML IV SCH (01:50)
[2017-04-19] MEDS: CEFAZOLIN 1 GM/D5W RTU 1 GM/50 ML RTUPB IV SCH (03:05)
[2017-04-19] MEDS: KETOROLAC TROMETHAMINE INJ/PF 30 MG/1 ML SDV IV SCH ×2 (03:06→09:43)
[2017-04-19] MEDS ORDERED: VANCOMYCIN HCL 1,250 MG in DEXTROSE 5%-WATER 250 ML IV SCH (09:00)
[2017-04-19 09:02] VITALS: BP 132/74
[2017-04-19] MEDS: DOCUSATE SODIUM 100 MG CAPSULE PO SCH (09:33)
[2017-04-19] MEDS: THIAMINE HCL 100 MG TABLET PO SCH (09:34)
[2017-04-19] MEDS: MULTIVITAMIN TABLET PO SCH (09:34)
[2017-04-19] MEDS: FOLIC ACID 1 MG TABLET PO SCH (09:34)
[2017-04-19] MEDS: ENOXAPARIN SODIUM INJ 40 MG/0.4 ML DISP.SYRIN SUBCUT SCH (09:43)
--- NOTE | 2017-04-19 13:19 | DISCHARGE SUMMARY E ---
Discharge Summary NAME: DRE BALL : 1975 AGE: 41Y ADMITTED: 04/17/2017 DISCHARGED: 04/19/2017 The patient left AMA (this is an AMA summary) on 04/19/2017. PRIMARY CARE PROVIDER: Not established. CONSULTING SURGEON: GUSTAVO REDDING M.D. WORKING DIAGNOSES AT THE TIME THE PATIENT LEFT AMA: 1. Gram positive cocci infection of the right AC. 2. Cellulitis and abscess of the right upper extremity. 3. Polysubstance abuse, including benzodiazepines, amphetamine, THC an opioids. 4. Suspected IV drug use. 5. Tobacco dependency. DISCHARGE PRESCRIPTIONS: I sent a prescription of Bactrim DS 1 tablet p.o. b.i.d., 20 caps with 0 refills, to the patient's pharmacy, as I do feel most likely he has an MRSA infection of this area. HISTORY OF PRESENT ILLNESS: The patient is a 41-year-old male with a past medical history of methamphetamine use. The patient presented to the emergency department with a chief complaint of right arm pain and swelling. The patient gave a 24-hour history of increasing redness and pain involving his right upper extremity that started in his right AC fossa. As it progressed, prominent throbbing sharp pain, which increased with any movement of the extremities. The patient was quite distressed as apparently he had his newly delivered child taken away from [facility] due to the mother having a substance abuse issue. The patient admitted to being excessively stressed, but would not admit to any specific drug use, although he self reported multiple substances in the past and had a positive tox screen. The patient noted shaking chills, but denied any nausea, vomiting, diarrhea, paresthesias, or dysuria. The patient was referred to the hospitalist for admission and management. HOSPITAL COURSE: The patient was admitted to the medical unit. The patient was started on vancomycin given his high risk for MRSA and the patient's blood cultures were not positive. However, the area did not improve in spite of IV antibiotic. Therefore, the patient was seen by Surgery. The patient was taken to the OR for an I and D of the abscess and was packed. The patient's pain was managed with scheduled Toradol as well as Vicodin for breakthrough symptoms. However, the patient became increasing agitated and chose to leave AMA. I personally saw the patient the day he left AMA and the patient had agreed to await for the surgeon to reevaluate and remove his packing. However, I had not been gone from the room more than 10 minutes when nursing called and stated that the patient had left against medical advice. PHYSICAL EXAMINATION: GENERAL: When I rounded, the patient was awake, alert, and oriented to person, place, time, and situation. He is verbal, conversational, stated that he did need to get to [facility]. He does not appear to be in any physical distress, but does feel emotionally distressed. VITAL SIGNS: Temperature is 97.8, pulse 83, respirations 18, blood pressure is 132/74, oxygen saturation is 100% on room air. SKIN: Warm and dry. No rash. He was not diaphoretic. HEENT: Pupils equal, round, and reactive to light and accommodation. Conjunctivae pink. No JVP. CARDIOVASCULAR SYSTEM: Heart was regular with no murmur or rub. CHEST: Clear, symmetrical, and unlabored. ABDOMEN: Soft, nontender, and nondistended. BACK: No CVA tenderness or sacral edema. EXTREMITIES: No clubbing or cyanosis. The patient's right arm does appear improved. Area of packing appears the edema has improved, redness is also improved. The patient is complaining about possible scarring over his tattoo. PSYCHIATRIC: The patient is agitated. DIAGNOSTIC DATA: Lab values are as follows: Hematology obtained on 04/17/2017: WBCs are 12.3, hemoglobin is 15.0, hematocrit is 43.5, platelet count is 207,000. Chemistries obtained on 04/17/2017: Sodium is 136, potassium 4.3, chloride is 93, carbon dioxide 33, BUN 19, creatinine is 0.94, glucose 80, calcium is 9.2, magnesium is 1.7, AST 39, ALT is 80, alk phos 48, total protein 7.0, albumin 3.9. Toxicology is positive for opioids, amphetamines, benzodiazepines, and marijuana. TIME: Time spent on this visit, including assessment, plan, physical examination, patient education, and AMA summary is 25 minutes. DICTATING PHYSICIAN: TORIBIO MANTILLA NP [id number] PHY#: [id number] ID: [id number] JOB#: [id number] ACCT: [id number] cc:Michelle GALLEGOS NP >
== END 2017-04-19 11:10 | disposition left against medical advice (07) | DRG 603 ==
LOC: ER 23:07 → EH 04-17 01:16 → UNDOADMIN 04-17 01:16 → EH 04-17 02:36 → 5 04-17 02:52 → EH 04-17 02:52 → 5 04-17 03:04 → 4S 04-17 03:04 → 4N 04-17 16:46
PROVIDERS: ADMIT Family Medicine; ATTEND Family Medicine
PROC: 0J9G0ZX Drainage of Right Lower Arm Subcutaneous Tissue and Fascia, Open Approach, Diagnostic (ICD-10-PCS; principal; 2017-04-18 15:00)
DX: L03.113 Cellulitis of right upper limb (principal); L02.413 Cutaneous abscess of right upper limb; B96.89 Other specified bacterial agents as the cause of diseases classified elsewhere; F17.200 Nicotine dependence, unspecified, uncomplicated; F11.10 Opioid abuse, uncomplicated; F12.10 Cannabis abuse, uncomplicated; F13.10 Sedative, hypnotic or anxiolytic abuse, uncomplicated; Z88.8 Allergy status to other drugs, medicaments and biological substances; Z72.89 Other problems related to lifestyle
CPT/HCPCS: 00400; 36415; 76882; 80053; 80202; 80307; 82565; 83735; 85025; 87040; 87070; 87075; 87077; 87186; 87205; 90471; 90715; 96365; 96375; 99285; A6266; J0131; J0330; J0690; J1100; J1650; J1885; J2250; J2270; J2405; J2704; J3010; J3370; J3490; J7060; J7120

== ENCOUNTER 2017-04-20 14:31 | Emergency (ER) | payer SELFPAY ==
[2017-04-20 14:41] VITALS: BP 153/96
--- NOTE | 2017-04-20 15:08 | ER Document Report ---
ED General - General Chief Complaint: Arm Pain Stated Complaint: POSSIBLE MRSA Time Seen by Provider: 04/20/17 15:03 Notes: Patient was an inpatient here until yesterday. At that time he left AGAINST MEDICAL ADVICE. The culture of his wound grew out MRSA so he was called and asked to return to the emergency department. He states he has no medications at home. He states he has no doctor to follow-up with. He states overall he has been feeling fine. He states his arm pain is definitely improved. He denies any fevers chills weakness or dizziness. He states he still has some mild right arm pain. It is sharp occasionally throbbing. It is worse with movement and better with rest. It does radiate down the right arm. TRAVEL OUTSIDE OF THE [place] IN LAST 30 DAYS: No - Related Data Allergies/Adverse Reactions: haloperidol [From Haldol] Adverse Reaction (Verified 04/20/17 14:37) Dystonia prochlorperazine [From Compazine] Adverse Reaction (Verified 04/20/17 14:37) Dystonia Past Medical History - General Information source: Patient - Social History Smoking Status: Never Smoker Chew tobacco use (# tins/day): No Frequency of alcohol use: None Drug Abuse: None Family History: Reviewed & Not Pertinent Patient has suicidal ideation: No Patient has homicidal ideation: No - Past Medical History Cardiac Medical History: Denies: Hx Atrial Fibrillation, Hx Congestive Heart Failure, Hx Coronary Artery Disease, Hx DVT, Hx Heart Attack, Hx Hypercholesterolemia, Hx Hypertension, Hx Pulmonary Embolism Pulmonary Medical History: Denies: Hx Asthma, Hx COPD, Hx Sleep Apnea Neurological Medical History: Reports: Hx Seizures - Childhood epilepsy; 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 No antiepileptic. Endocrine Medical History: Denies: Hx Diabetes Mellitus Type 1, Hx Diabetes Mellitus Type 2, Hx Hyperthyroidism, Hx Hypothyroidism Renal/ Medical History: Denies: Hx Peritoneal Dialysis GI Medical History: Denies: Hx Cirrhosis, Hx Gastroesophageal Reflux Disease, Hx Hepatitis Musculoskeltal Medical History: Denies Hx Arthritis Psychiatric Medical History: Denies: Hx Depression Infectious Medical History: Reports: Hx C-Diff. Denies: Hx Hepatitis, Hx MRSA Surgical Hx: Negative Past Surgical History: Reports: Other - [place] teeth extraction - Immunizations Hx Diphtheria, Pertussis, Tetanus Vaccination: Yes Review of Systems - Review of Systems Constitutional: denies: Chills, Fever Cardiovascular: denies: Chest pain, Palpitations Respiratory: denies: Cough, Short of breath Skin: Change in color, Lesions Neurological/Psychological: denies: Weakness, Numbness Physical Exam - Vital signs Vitals: Temp Pulse Resp BP Pulse Ox 98.0 F 81 16 153/96 H 97 04/20/17 14:38 04/20/17 14:38 04/20/17 14:38 04/20/17 14:38 04/20/17 14:38 Interpretation: Hypertensive - General General appearance: Appears well, Alert In distress: None - Respiratory Respiratory status: No respiratory distress Breath sounds: Normal - Cardiovascular Rhythm: Regular Heart sounds: Normal auscultation Murmur: No - Extremities General upper extremity: Tender - Patient's volar surface of the right forearm has an area consistent with a previous incision and drainage. He does have packing in the wound. The wound itself appears to be healing normally. There is no significant surrounding erythema or streaking. There is some minimal tenderness to palpation and some minimal induration. No discharge could be expressed from the wound. - Skin Skin Temperature: Warm Skin Moisture: Dry Course - Vital Signs Vital signs: Temp Pulse Resp BP Pulse Ox 98.0 F 81 16 153/96 H 97 04/20/17 14:38 04/20/17 14:38 04/20/17 14:38 04/20/17 14:38 04/20/17 14:38 Discharge - Discharge Clinical Impression: MRSA (methicillin resistant Staphylococcus aureus) infection Condition: Stable Disposition: HOME, SELF-CARE Instructions: MRSA Cellulitis ([facility]), Trimethoprim-Sulfa ([facility]), Post Incision and Drainage Additional Instructions: Please call the surgery office as soon as possible to arrange follow-up. If you are unable to see them and he develop any fevers, vomiting, or worsening symptoms please return to the emergency department. Prescriptions: Sulfamethoxazole/Trimethoprim [Bactrim Ds Tablet] 1 each PO BID #20 tablet Referrals: GUSTAVO REDDING MD [ACTIVE STAFF] - Follow up in 3-5 days
== END 2017-04-20 15:14 | disposition home or self-care (01) ==
LOC: ER 14:31
DX: A49.02 Methicillin resistant Staphylococcus aureus infection, unspecified site (principal); M79.601 Pain in right arm
CPT/HCPCS: 99283

== ENCOUNTER 2017-05-19 02:34 | Emergency (ER) | payer SELFPAY ==
[2017-05-19] MEDS ORDERED: SULFAMETHOXAZOLE/TRIMETHOPRIM 800-160 MG TABLET PO ONE (03:13)
[2017-05-19] MEDS ORDERED: CEPHALEXIN 500 MG CAPSULE PO ONE (03:13)
--- NOTE | 2017-05-19 03:16 | ER Document Report ---
HPI - HPI Patient complains to provider of: arm infection Onset: Yesterday Onset/Duration: Gradual Quality of pain: Sharp Pain Level: 5 Context: Patient states that he had an insect bite on his left elbow that he scratched. Patient states that the area gradually became inflamed. Patient states that he developed an infection that he squeezed purulent drainage from. Patient does report recent history of MRSA involving an abscess to his right arm. Patient states he has been off antibiotics for at least 2 weeks now. Patient denies any fever. Associated Symptoms: Other - Left elbow infection. denies: Fever Exacerbated by: Denies Relieved by: Denies Similar symptoms previously: Yes Recently seen / treated by doctor: No - ROS ROS below otherwise negative: Yes Systems Reviewed and Negative: Yes All other systems reviewed and negative - CONSTITUTIONAL Constitutional: DENIES: Fever, Chills - MUSCULOSKELETAL Musculoskeletal: REPORTS: Extremity pain - DERM Skin Color: Erythema Notes: open wound Past Medical History - General Information source: Patient - Social History Smoking Status: Current Every Day Smoker Frequency of alcohol use: None Drug Abuse: Other - hx iv drug use, none for several months per pt Occupation: none Family History: Reviewed & Not Pertinent - Past Medical History Cardiac Medical History: Denies: Hx Atrial Fibrillation, Hx Congestive Heart Failure, Hx Coronary Artery Disease, Hx DVT, Hx Heart Attack, Hx Hypercholesterolemia, Hx Hypertension, Hx Pulmonary Embolism Pulmonary Medical History: Denies: Hx Asthma, Hx COPD, Hx Sleep Apnea Neurological Medical History: Reports: Hx Seizures - Childhood epilepsy; 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 No antiepileptic. Endocrine Medical History: Denies: Hx Diabetes Mellitus Type 1, Hx Diabetes Mellitus Type 2, Hx Hyperthyroidism, Hx Hypothyroidism Renal/ Medical History: Denies: Hx Peritoneal Dialysis GI Medical History: Denies: Hx Cirrhosis, Hx Gastroesophageal Reflux Disease, Hx Hepatitis Musculoskeltal Medical History: Denies Hx Arthritis Skin Medical History: Reports Hx MRSA Psychiatric Medical History: Denies: Hx Depression Infectious Medical History: Reports: Hx C-Diff. Denies: Hx Hepatitis, Hx MRSA Past Surgical History: Reports: Other - [place] teeth extraction, abscess to right AC - Immunizations Hx Diphtheria, Pertussis, Tetanus Vaccination: Yes Vertical Provider Document - CONSTITUTIONAL Agree With Documented VS: Yes Exam Limitations: No Limitations General Appearance: WD/WN, No Apparent Distress - INFECTION CONTROL TRAVEL OUTSIDE OF THE [place] IN LAST 30 DAYS: No - HEENT HEENT: Atraumatic, Normocephalic - NECK Neck: Normal Inspection - RESPIRATORY Respiratory: Breath Sounds Normal, No Respiratory Distress O2 Sat by Pulse Oximetry: 97 - CARDIOVASCULAR Cardiovascular: Regular Rate, Regular Rhythm Pulses: Normal: Radial - MUSCULOSKELETAL/EXTREMETIES Musculoskeletal/Extremeties: MAEW, FROM, Tender - left elbow - NEURO Level of Consciousness: Awake, Alert, Appropriate Motor/Sensory: No Motor Deficit - DERM Integumentary: Warm, Dry. negative: Abscess Notes: Patient with open ulceration over left elbow with surrounding erythema concerning for cellulitis. Full range of motion to left elbow joint, no concern for septic arthritis Course - Vital Signs Vital signs: Temp Pulse Resp BP Pulse Ox 98.3 F 94 16 150/103 H 97 05/19/17 02:39 05/19/17 02:39 05/19/17 02:39 05/19/17 02:39 05/19/17 02:39 Discharge - Discharge Clinical Impression: Cellulitis of left elbow, Elevated blood pressure reading Condition: Stable Disposition: HOME, SELF-CARE Instructions: Bactroban Ointment ([facility]), Cephalexin ([facility]), MRSA Cellulitis ([facility]) , Trimethoprim-Sulfa ([facility]) Additional Instructions: Return immediately for any new or worsening symptoms Followup with your primary care provider, call tomorrow to make a followup appointment Prescriptions: Cephalexin Monohydrate [Keflex 500 mg Capsule] 500 mg PO Q6H 5 Days capsule Mupirocin [Bactroban 2% Ointment 22 gm] 1 applic TP TID #22 gm Naproxen [Naprosyn 250 Nmg Tablet] 1 tab PO BID #14 tablet Sulfamethoxazole/Trimethoprim [Bactrim Ds Tablet] 1 each PO BID #20 tablet Forms: Elevated Blood Pressure Referrals: [facility] [Provider Group] - Follow up tomorrow
[2017-05-19 03:41] VITALS: BP 155/103
== END 2017-05-19 03:42 | disposition home or self-care (01) ==
LOC: ER 02:34
DX: L02.413 Cutaneous abscess of right upper limb (principal); R03.0 Elevated blood-pressure reading, without diagnosis of hypertension; F17.200 Nicotine dependence, unspecified, uncomplicated
CPT/HCPCS: 99283

== ENCOUNTER → 2017-06-25 | Outpatient (CLI) | payer BC ==
[2017-06-25 12:40] LABS: ABSOLUTE EOSINOPHILS # (AUTO) 0.2 10^3/uL (0.0-0.6); ABSOLUTE LYMPHOCYTES (AUTO) 0.8 10^3/uL (0.5-4.7); ABSOLUTE MONOCYTES (AUTO) 0.8 10^3/uL (0.1-1.4); ABSOLUTE NEUT (AUTO) 5.5 10^3/uL (1.7-8.2); BASOPHILS % (AUTO) 0.5 % (0-2); EOSINOPHILS % (AUTO) 2.1 % (0-6); HEMATOCRIT 39.4 % (37.9-51.0); HEMOGLOBIN 13.6 g/dL (13.5-17.0); HGB HCT DIFFERENCE 1.4; LYMPHOCYTES % (AUTO) 11.3 % (13-45); MEAN CORPUSCULAR HEMOGLOBIN 31.2 pg (27.0-33.4); MEAN CORPUSCULAR HGB CONC 34.6 g/dL (32.0-36.0); MEAN CORPUSCULAR VOLUME 90 fl (80-97); MONOCYTES % (AUTO) 10.8 % (3-13); RED BLOOD COUNT 4.37 10^6/uL (4.35-5.55); RED CELL DISTRIBUTION WIDTH 13.9 % (11.5-14.0); SEGMENTED NEUTROPHILS % (AUTO) 75.3 % (42-78); WHITE BLOOD COUNT 7.3 10^3/uL (4.0-10.5)
[2017-06-25 12:59] LABS: BLOOD UREA NITROGEN 17 mg/dL (7-20); CALCIUM 9.3 mg/dL (8.4-10.2); CARBON DIOXIDE 30 mmol/L (22-30); CHLORIDE 99 mmol/L (98-107); CREATININE RESULT 0.86 mg/dL (0.52-1.25); GLUCOSE 86 mg/dL (75-110); POTASSIUM 4.4 mmol/L (3.6-5.0)
[2017-06-25 13:00] LABS: ALANINE AMINOTRANSFERASE 228 U/L (21-72); ALBUMIN 4.1 g/dL (3.5-5.0); ALKALINE PHOSPHATASE 44 U/L (38-126); ANION GAP 11 (5-19); ASPARTATE AMINO TRANSFERASE 146 U/L (17-59); BILIRUBIN,DIRECT 0.4 mg/dL (0.0-0.4); BILIRUBIN,TOTAL 0.6 mg/dL (0.2-1.3); C-REACTIVE PROTEIN 23.6 mg/L (<10.0); SODIUM 140.4 mmol/L (137-145); TOTAL PROTEIN 7.2 g/dL (6.3-8.2)
[2017-06-25 13:40] LABS: ERYTHROCYTE SEDIMENTATION RATE 26 mm/hr (0-15)
== END ==
LOC: OD 12:04
PROVIDERS: ATTEND Anesthesiology Pain Medicine
DX: L03.90 Cellulitis, unspecified (principal)
CPT/HCPCS: 36415; 80053; 85025; 85652; 86140

== ENCOUNTER 2017-10-15 00:34 | Inpatient (IN) | payer BC ==
[2017-10-15] MEDS ORDERED: ONDANSETRON HCL INJ/PF 4 MG/2 ML SDV IV ONE (01:54)
[2017-10-15] MEDS ORDERED: HYDROMORPHONE HCL INJ/PF 2 MG/ML AMPULE IV ONE (01:54)
[2017-10-15] MEDS ORDERED: CLINDAMYCIN 600 MG/D5W RTU 600 MG/50 ML RTUPB IV ONE (01:55)
[2017-10-15] MEDS ORDERED: NORMAL SALINE 1000 ML 1,000 ML IV ONE (01:55)
--- NOTE | 2017-10-15 01:58 | ER Document Report ---
ED Medical Screen (RME) - General Chief Complaint: Abscess Stated Complaint: FACIAL PAIN Time Seen by Provider: 10/15/17 01:49 Mode of Arrival: Ambulatory Information source: Patient TRAVEL OUTSIDE OF THE [place] IN LAST 30 DAYS: No - HPI Patient complains to provider of: FACE ABSCESS Notes: 10/15/17 01:56 Patient arrives with complaints of left facial abscess. Patient has a history of MRSA in the past. States that he had an abscess that he attempted to "pop "to the left cheek. Seem to get worse today so he was seen at urgent care. He states that they performed an I&D and placed him on antibiotics. He states that the cheek is now more swollen and is actually having swelling going into the infraorbital area the pain seems to be getting worse and is feeling worse in general. He denies any actual fever. He has had some nausea. Patient is nontoxic appearing at this time. He is noted to have an indurated abscess to the left maxillary area with swelling over to the nose into the infraorbital area with redness. Airway is patent. Sepsis orders have been placed due to the fact that the patient has an infection and is tachycardic at this time. CT of the maxillofacial with IV contrast has been ordered as well. IV clindamycin has been ordered as well. Patient was evaluated in triage and was medically screened. Any pertinent orders based on the patient's complaints were ordered at this time. Patient will require further evaluation and will be taken to a room for further evaluation by another provider. This was explained to the patient and/or family at this time. - Related Data Allergies/Adverse Reactions: haloperidol [From Haldol] Adverse Reaction (Verified 10/15/17 00:36) Dystonia prochlorperazine [From Compazine] Adverse Reaction (Verified 10/15/17 00:36) Dystonia Past Medical History - Past Medical History Cardiac Medical History: Denies: Hx Atrial Fibrillation, Hx Congestive Heart Failure, Hx Coronary Artery Disease, Hx DVT, Hx Heart Attack, Hx Hypercholesterolemia, Hx Hypertension, Hx Pulmonary Embolism Pulmonary Medical History: Denies: Hx Asthma, Hx COPD, Hx Sleep Apnea Neurological Medical History: Reports: Hx Seizures - Childhood epilepsy; 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 No antiepileptic. Endocrine Medical History: Denies: Hx Diabetes Mellitus Type 1, Hx Diabetes Mellitus Type 2, Hx Hyperthyroidism, Hx Hypothyroidism Renal/ Medical History: Denies: Hx Peritoneal Dialysis GI Medical History: Denies: Hx Cirrhosis, Hx Gastroesophageal Reflux Disease, Hx Hepatitis Musculoskeltal Medical History: Denies Hx Arthritis Skin Medical History: Reports Hx MRSA Psychiatric Medical History: Denies: Hx Depression Infectious Medical History: Reports: Hx C-Diff. Denies: Hx Hepatitis, Hx MRSA Past Surgical History: Reports: Other - [place] teeth extraction, abscess to right AC - Immunizations Hx Diphtheria, Pertussis, Tetanus Vaccination: Yes Physical Exam - Vital signs Vitals: Temp Pulse BP Pulse Ox 98.0 F 110 H 150/96 H 100 10/15/17 00:39 10/15/17 00:39 10/15/17 00:39 10/15/17 00:39 Course - Vital Signs Vital signs: Temp Pulse Resp BP Pulse Ox 98.0 F 110 H 150/96 H 100 10/15/17 00:39 10/15/17 00:39 10/15/17 00:39 10/15/17 00:39
[2017-10-15 02:25] LABS: ABSOLUTE BASOPHILS # (AUTO) 0.1 10^3/uL (0.0-0.2); ABSOLUTE EOSINOPHILS # (AUTO) 0.1 10^3/uL (0.0-0.6); ABSOLUTE LYMPHOCYTES (AUTO) 0.9 10^3/uL (0.5-4.7); ABSOLUTE MONOCYTES (AUTO) 0.8 10^3/uL (0.1-1.4); ABSOLUTE NEUT (AUTO) 5.1 10^3/uL (1.7-8.2); BASOPHILS % (AUTO) 0.9 % (0-2); EOSINOPHILS % (AUTO) 1.6 % (0-6); HEMATOCRIT 37.2 % (37.9-51.0); HEMOGLOBIN 12.8 g/dL (13.5-17.0); LYMPHOCYTES % (AUTO) 12.5 % (13-45); MEAN CORPUSCULAR HEMOGLOBIN 29.6 pg (27.0-33.4); MEAN CORPUSCULAR HGB CONC 34.5 g/dL (32.0-36.0); MEAN CORPUSCULAR VOLUME 86 fl (80-97); MONOCYTES % (AUTO) 11.8 % (3-13); PLATELET COUNT 221 10^3/uL (150-450); RED BLOOD COUNT 4.33 10^6/uL (4.35-5.55); RED CELL DISTRIBUTION WIDTH 13.6 % (11.5-14.0); SEGMENTED NEUTROPHILS % (AUTO) 73.2 % (42-78); TOTAL CELLS COUNTED % (AUTO) 100 %
[2017-10-15 02:33] LABS: INTERNATIONAL RATION (INR) 1.01
[2017-10-15 02:34] LABS: PARTIAL THROMBOPLASTIN TIME 37.4 SEC (23.5-35.8)
[2017-10-15 02:43] LABS: ALANINE AMINOTRANSFERASE 49 U/L (21-72); ALBUMIN 3.9 g/dL (3.5-5.0); ALKALINE PHOSPHATASE 52 U/L (38-126); ANION GAP 8 (5-19); ASPARTATE AMINO TRANSFERASE 28 U/L (17-59); BILIRUBIN,DIRECT 0.1 mg/dL (0.0-0.4); BILIRUBIN,TOTAL 0.3 mg/dL (0.2-1.3); BLOOD UREA NITROGEN 18 mg/dL (7-20); CALCIUM 8.8 mg/dL (8.4-10.2); CARBON DIOXIDE 31 mmol/L (22-30); CHLORIDE 101 mmol/L (98-107); GLUCOSE 89 mg/dL (75-110); POTASSIUM 4.2 mmol/L (3.6-5.0); SODIUM 140.3 mmol/L (137-145); TOTAL PROTEIN 6.9 g/dL (6.3-8.2)
--- NOTE | 2017-10-15 03:50 | ER Document Report ---
ED Skin Rash/Insect Bite/Abscs - General Chief Complaint: Abscess Stated Complaint: FACIAL PAIN Time Seen by Provider: 10/15/17 01:49 Mode of Arrival: Ambulatory Notes: Patient is a 41-year-old male that comes emergency department for chief complaint of a painful swollen area over his left cheek. He states that area has been worsening for 3 days. Initially he popped what seemed like a pimple before it started worsening. He states this afternoon he was seen at urgent care, they made an incision and a tiny amount of purulent material and then clear fluid came out, he took 2 doses of Bactrim and Keflex, however the area continued to spread and worsened and now it has spread to his lower eyelid. He denies any visual changes, discharge from the eye, or pain in the eye. He has had abscesses in the past. Tetanus is up-to-date within 5 years. He was admitted last year for treatment of abscess and cellulitis, he has a history of IV drug abuse in the past, he smokes. He admits to continued intermittent IV drug abuse. TRAVEL OUTSIDE OF THE [place] IN LAST 30 DAYS: No - Related Data Allergies/Adverse Reactions: haloperidol [From Haldol] Adverse Reaction (Verified 10/15/17 00:36) Dystonia prochlorperazine [From Compazine] Adverse Reaction (Verified 10/15/17 00:36) Dystonia Past Medical History - General Information source: Patient - Social History Smoking Status: Current Some Day Smoker Drug Abuse: Methamphetamine, Prescription drugs Family History: Reviewed & Not Pertinent Patient has suicidal ideation: No Patient has homicidal ideation: No - Past Medical History Cardiac Medical History: Denies: Hx Atrial Fibrillation, Hx Congestive Heart Failure, Hx Coronary Artery Disease, Hx DVT, Hx Heart Attack, Hx Hypercholesterolemia, Hx Hypertension, Hx Pulmonary Embolism Pulmonary Medical History: Denies: Hx Asthma, Hx COPD, Hx Sleep Apnea Neurological Medical History: Reports: Hx Seizures - Childhood epilepsy; 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 No antiepileptic. Endocrine Medical History: Denies: Hx Diabetes Mellitus Type 1, Hx Diabetes Mellitus Type 2, Hx Hyperthyroidism, Hx Hypothyroidism Renal/ Medical History: Denies: Hx Peritoneal Dialysis GI Medical History: Denies: Hx Cirrhosis, Hx Gastroesophageal Reflux Disease, Hx Hepatitis Musculoskeltal Medical History: Denies Hx Arthritis Skin Medical History: Reports Hx MRSA Psychiatric Medical History: Denies: Hx Depression Infectious Medical History: Reports: Hx C-Diff. Denies: Hx Hepatitis, Hx MRSA Past Surgical History: Reports: Other - [place] teeth extraction, abscess to right AC - Immunizations Hx Diphtheria, Pertussis, Tetanus Vaccination: Yes Review of Systems - Review of Systems Constitutional: No symptoms reported EENT: No symptoms reported Cardiovascular: No symptoms reported Respiratory: No symptoms reported Gastrointestinal: No symptoms reported Genitourinary: No symptoms reported Male Genitourinary: No symptoms reported Musculoskeletal: No symptoms reported Skin: See HPI Hematologic/Lymphatic: No symptoms reported Neurological/Psychological: No symptoms reported Physical Exam - Vital signs Vitals: Temp Pulse BP Pulse Ox 98.0 F 110 H 150/96 H 100 10/15/17 00:39 10/15/17 00:39 10/15/17 00:39 10/15/17 00:39 Interpretation: Normal - General General appearance: Appears well, Alert - HEENT Head: Normocephalic, Atraumatic Eyes: Normal Conjunctiva: Normal Extraocular movements intact: Yes Eyelashes: Normal Pupils: PERRL Nasal: Normal Mouth/Lips: Normal Mucous membranes: Normal Pharynx: Normal Neck: Normal - Respiratory Respiratory status: No respiratory distress Chest status: Nontender Breath sounds: Normal Chest palpation: Normal - Cardiovascular Rhythm: Regular Heart sounds: Normal auscultation Murmur: No - Abdominal Inspection: Normal Distension: No distension Bowel sounds: Normal Tenderness: Nontender Organomegaly: No organomegaly - Back Back: Normal, Nontender - Extremities General upper extremity: Normal inspection, Nontender, Normal color, Normal ROM , Normal temperature General lower extremity: Normal inspection, Nontender, Normal color, Normal ROM , Normal temperature, Normal weight bearing. No: Pema's sign - Neurological Neuro grossly intact: Yes Cognition: Normal Orientation: AAOx4 [place] Coma Scale Eye Opening: Spontaneous [place] Coma Scale Verbal: Oriented [place] Coma Scale Motor: Obeys Commands [place] Coma Scale Total: 15 Speech: Normal Motor strength normal: LUE, RUE, LLE, RLE Sensory: Normal - Psychological Associated symptoms: Normal affect, Normal mood - Skin Skin Temperature: Warm Skin Moisture: Dry Skin Color: Normal Skin irregularity: other - There is a scab on the forehead. There is a recently incised oval-shaped area over the left zygomatic area with surrounding erythema and tenderness, arrhythmia extends to the side of the nose and up to the infraorbital area. No orbital cellulitis noted. Course - Re-evaluation Re-evalutation: Patient with recently incised area on the left zygomatic area with surrounding shiny erythema consistent with cellulitis extending towards the side of the nose and up towards the lower eyelid. Normal EOMs. No evidence of orbital involvement. I performed an ultrasound at bedside and no fluid collection is seen at this time. Patient has already had a full workup including blood evaluation and CAT scan of the face with contrast. CAT scan reviewed, shows evidence of cellulitis but no collection/abscess, no orbital cellulitis. Patient has been given a dose of clindamycin but based on the lower efficacy for treating MRSA with patient's history of MRSA patient will be given vancomycin. Discussed with patient. He has already begun outpatient antibiotics and has worsened, he has a history of MRSA, IV drug abuse, and recent hospitalization for abscess/cellulitis. Will discuss for admission. Discussed with Dr. Cherry, internal medicine, patient will be admitted to the medical floor. Patient states agreement with this plan. - Vital Signs Vital signs: Temp Pulse Resp BP Pulse Ox 98.0 F 110 H 150/96 H 100 10/15/17 00:39 10/15/17 00:39 10/15/17 00:39 10/15/17 00:39 - Laboratory Result Diagrams: 10/15/17 02:11 10/15/17 02:11 Laboratory results interpreted by me: 10/15/17 10/15/17 10/15/17 02:11 02:11 02:11 RBC 4.33 L Hgb 12.8 L Hct 37.2 L Lymphocytes % 12.5 L APTT 37.4 H Carbon Dioxide 31 H Discharge - Discharge Clinical Impression: Facial cellulitis, IV drug abuse Condition: Stable Disposition: ADMITTED INPATIENT Admitting Provider: Hospitalist Unit Admitted: Medical Floor
--- NOTE | 2017-10-15 03:59 | RADIOLOGY REPORT (SQ) ---
EXAM DESCRIPTION: CT facial bones with contrast CLINICAL HISTORY: LEFT CHEEK ABSCESS COMPARISON: None Available. TECHNIQUE: Axial CT images of the facial bones with contrast obtained following the uncomplicated intravenous administration of 74 mL Isovue-370. FINDINGS: Visualized intracranial contents are unremarkable. No fracture of the visualized facial bones. Visualized orbits and globes are unremarkable. Paranasal sinuses are well aerated. Visualized mastoid air cells are well aerated. The mandible is intact. No periapical lucencies noted in the upper lower teeth. In the neck soft tissues scattered mildly prominent left submandibular lymph nodes. No abnormalities of the parapharyngeal or pharyngeal mucosal space. No abnormalities in the retropharyngeal space. The visualized epiglottis and infrahyoid visceral space are within normal limits. Visualized portions of the thyroid gland are within normal limits. Within the subcutaneous soft tissues in the left maxillary region there is edema and skin thickening without well-circumscribed rim-enhancing fluid collection identified. DLP: 130.28 mGy-cm IMPRESSION: 1. Findings compatible with cellulitis in the left facial subcutaneous soft tissues. No well-circumscribed fluid collection to suggest abscess formation. This exam was performed according to our departmental dose-optimization program, which includes automated exposure control, adjustment of the mA and/or kV according to patient size and/or use of iterative reconstruction technique.
[2017-10-15] MEDS ORDERED: VANCOMYCIN HCL INJ 1000 MG VIAL IV ONE (04:08)
[2017-10-15] MEDS ORDERED: ACETAMINOPHEN 325 MG TABLET PO PRN (08:53)
--- NOTE | 2017-10-15 09:10 | PDOC H&P ---
History of Present Illness Admission Date/PCP: 10/15/17 04:56 No PCP Patient complains of: Infected Facial Wound History of Present Illness: DRE BALL is a 41 year old male with history of MRSA presents to the emergency room with 3 day history of left facial swelling. Patient reports that he had a bump on his face that had pus in it and shortly after that the infection spread. Patient also reports that he also has a lesion on his forehead as well. Patient denies any nausea vomiting. Patient also denies any dental issues. Patient reports that he has been diagnosed with MRSA in the past. Patient reports that he is having pain of 4 out of 10. Past Medical History Cardiac Medical History: Denies: Atrial Fibrillation, Congestive Heart Failure, Coronary Artery Disease, DVT, Myocardial Infarction, Hyperlipidema, Hypertension, Pulmonary Embolism Pulmonary Medical History: Denies: Asthma, Chronic Obstructive Pulmonary Disease (COPD), Sleep Apnea Neurological Medical History: Reports: Seizures - Childhood epilepsy; 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 No antiepileptic. Endocrine Medical History: Denies: Diabetes Mellitus Type 1, Diabetes Mellitus Type 2, Hyperthyroidism, Hypothyroidism GI Medical History: Denies: Cirrhosis, Gastroesophageal Reflux Disease, Hepatitis Musculoskeltal Medical History: Denies: Arthritis Psychiatric Medical History: Denies: Depression Infectious Medical History: Reports: Clostridium Difficile Denies: Methicillin-Resistant Staph Aureus Past Surgical History Past Surgical History: Reports: Other - [place] teeth extraction, abscess to right AC Social History Smoking Status: Current Some Day Smoker Frequency of Alcohol Use: Social Hx Recreational Drug Use: Yes Drugs: Marijuana, Other - Methamphetamine - Advance Directive Resuscitation Status: Full Code Family History Family History: Hypertension - Mother, Other - Patient does not know his father' s past medical history Parental Family History Reviewed: Yes Children Family History Reviewed: Yes Sibling(s) Family History Reviewed.: Yes Medication/Allergy Home Medications: Sulfamethoxazole/Trimethoprim [Bactrim Ds Tablet] 1 each PO BID #20 tablet 04/19 Sulfamethoxazole/Trimethoprim [Bactrim Ds Tablet] 1 each PO BID #20 tablet 04/20 Cephalexin Monohydrate [Keflex 500 mg Capsule] 500 mg PO Q6H 5 Days capsule Mupirocin [Bactroban 2% Ointment 22 gm] 1 applic TP TID #22 gm 05/19/17 Naproxen [Naprosyn 250 Nmg Tablet] 1 tab PO BID #14 tablet 05/19/17 Sulfamethoxazole/Trimethoprim [Bactrim Ds Tablet] 1 each PO BID #20 tablet 05/19 Allergies/Adverse Reactions: haloperidol [From Haldol] Adverse Reaction (Verified 10/15/17 00:36) Dystonia prochlorperazine [From Compazine] Adverse Reaction (Verified 10/15/17 00:36) Dystonia Review of Systems Constitutional: ABSENT: chills, fever(s), headache(s), weight gain, weight loss Eyes: ABSENT: visual disturbances Ears: ABSENT: hearing changes Cardiovascular: ABSENT: chest pain, dyspnea on exertion, edema, orthropnea, palpitations Respiratory: ABSENT: cough, hemoptysis Gastrointestinal: ABSENT: abdominal pain, constipation, diarrhea, hematemesis, hematochezia, nausea, vomiting Genitourinary: ABSENT: dysuria, hematuria Musculoskeletal: ABSENT: joint swelling Integumentary: PRESENT: wounds - Lesion on forehead, and swollen left side of face. ABSENT: rash Neurological: ABSENT: abnormal gait, abnormal speech, confusion, dizziness, focal weakness, syncope Psychiatric: ABSENT: anxiety, depression, homidical ideation, suicidal ideation Endocrine: ABSENT: cold intolerance, heat intolerance, polydipsia, polyuria Hematologic/Lymphatic: ABSENT: easy bleeding, easy bruising Physical Exam Vital Signs: Temp Pulse Resp BP Pulse Ox 98.3 F 110 H 18 124/76 100 10/15/17 08:00 10/15/17 00:39 10/15/17 08:00 10/15/17 08:00 10/15/17 00:39 General appearance: PRESENT: no acute distress, well-developed, well-nourished Head exam: PRESENT: atraumatic, normocephalic Eye exam: PRESENT: conjunctiva pink, EOMI. ABSENT: scleral icterus Ear exam: PRESENT: normal external ear exam Mouth exam: PRESENT: moist, tongue midline Neck exam: ABSENT: carotid bruit, JVD, lymphadenopathy, thyromegaly Respiratory exam: PRESENT: clear to auscultation ankit. ABSENT: rales, rhonchi, wheezes Cardiovascular exam: PRESENT: RRR. ABSENT: diastolic murmur, rubs, systolic murmur Pulses: PRESENT: normal dorsalis pedis pul Vascular exam: PRESENT: normal capillary refill GI/Abdominal exam: PRESENT: normal bowel sounds, soft. ABSENT: distended, guarding, mass, organolmegaly, rebound, tenderness Rectal exam: PRESENT: deferred Extremities exam: PRESENT: full ROM. ABSENT: calf tenderness, clubbing, pedal edema Musculoskeletal exam: PRESENT: full ROM Neurological exam: PRESENT: alert, awake, oriented to person, oriented to place , oriented to time, oriented to situation, CN II-XII grossly intact. ABSENT: motor sensory deficit Psychiatric exam: PRESENT: appropriate affect, normal mood. ABSENT: homicidal ideation, suicidal ideation Skin exam: PRESENT: rash, other - + left cheek erythema with swelling, + Forehead healing wound.. ABSENT: cyanosis Results Impressions: Facial Bones CT 10/15/17 01:55 IMPRESSION: 1. Findings compatible with cellulitis in the left facial subcutaneous soft tissues. No well-circumscribed fluid collection to suggest abscess formation. This exam was performed according to our departmental dose-optimization program, which includes automated exposure control, adjustment of the mA and/or kV according to patient size and/or use of iterative reconstruction technique. Assessment & Plan - Diagnosis (1) Facial cellulitis Is this a current diagnosis for this admission?: Yes Plan: CT of face demonstrates soft tissue swelling but no evidence of abscess. Will place patient on clindamycin. Hopefully within the next 24-48 hours swelling will have greatly decreased and patient will be able to be placed on p.o. antibiotics. Will monitor closely for abscess formation. (2) History of Clostridium difficile infection Is this a current diagnosis for this admission?: Yes Plan: We will empirically place patient on Flagyl. Patient currently not reporting diarrhea. (3) IV drug abuse Is this a current diagnosis for this admission?: Yes Plan: Patient denies using street drugs however has history of IV drug abuse. Will order tox screen. (4) Tobacco dependency Is this a current diagnosis for this admission?: Yes Plan: Patient reports that he no longer smokes. Will readdress again in a.m. (5) DVT prophylaxis Is this a current diagnosis for this admission?: Yes Plan: SCDs - Time Time Spent: 30 to 50 Minutes Anticipated discharge: Home
[2017-10-15] MEDS: CLINDAMYCIN 900 MG/D5W RTU 50 ML IV SCH ×2 (10:07→17:57)
[2017-10-15] MEDS: RINGERS SOLUTION,LACTATED 1,000 ML IV PRN ×2 (10:08→22:38)
[2017-10-15] MEDS: OXYCODONE-ACETAMINOPHEN 5-325 MG TABLET PO PRN ×3 (10:09→22:39)
[2017-10-15 14:04] LABS: URINE BARBITURATES SCREEN NEGATIVE; URINE BENZODIAZEPINES SCREEN NEGATIVE; URINE COCAINE SCREEN NEGATIVE; URINE MARIJUANA (THC) SCREEN NEGATIVE; URINE METHADONE SCREEN NEGATIVE; URINE PHENCYCLIDINE SCREEN NEGATIVE
[2017-10-15] MEDS: METRONIDAZOLE 500 MG TABLET PO SCH ×2 (16:05→22:39)
[2017-10-16] MEDS: CLINDAMYCIN 900 MG/D5W RTU 50 ML IV SCH ×3 (01:22→19:46)
[2017-10-16] MEDS: OXYCODONE-ACETAMINOPHEN 5-325 MG TABLET PO PRN ×3 (05:43→21:44)
[2017-10-16] MEDS: METRONIDAZOLE 500 MG TABLET PO SCH ×3 (05:43→21:44)
[2017-10-16] MEDS: LANSOPRAZOLE 30 MG TAB.RAP.DR PO SCH (05:43)
[2017-10-16 06:27] LABS: ABSOLUTE EOSINOPHILS # (AUTO) 0.2 10^3/uL (0.0-0.6); ABSOLUTE LYMPHOCYTES (AUTO) 0.7 10^3/uL (0.5-4.7); ABSOLUTE MONOCYTES (AUTO) 0.6 10^3/uL (0.1-1.4); BASOPHILS % (AUTO) 0.6 % (0-2); EOSINOPHILS % (AUTO) 2.4 % (0-6); HEMATOCRIT 36.4 % (37.9-51.0); HEMOGLOBIN 12.5 g/dL (13.5-17.0); LYMPHOCYTES % (AUTO) 10.3 % (13-45); MEAN CORPUSCULAR HEMOGLOBIN 29.5 pg (27.0-33.4); MEAN CORPUSCULAR HGB CONC 34.3 g/dL (32.0-36.0); MEAN CORPUSCULAR VOLUME 86 fl (80-97); MONOCYTES % (AUTO) 9.3 % (3-13); PLATELET COUNT 226 10^3/uL (150-450); RED BLOOD COUNT 4.24 10^6/uL (4.35-5.55); RED CELL DISTRIBUTION WIDTH 13.1 % (11.5-14.0); SEGMENTED NEUTROPHILS % (AUTO) 77.4 % (42-78); TOTAL CELLS COUNTED % (AUTO) 100 %; WHITE BLOOD COUNT 6.4 10^3/uL (4.0-10.5)
[2017-10-16 06:49] LABS: ALANINE AMINOTRANSFERASE 46 U/L (21-72); ALBUMIN 3.8 g/dL (3.5-5.0); ALKALINE PHOSPHATASE 54 U/L (38-126); ANION GAP 10 (5-19); ASPARTATE AMINO TRANSFERASE 26 U/L (17-59); BILIRUBIN,DIRECT 0.2 mg/dL (0.0-0.4); BILIRUBIN,TOTAL 0.2 mg/dL (0.2-1.3); BLOOD UREA NITROGEN 13 mg/dL (7-20); CALCIUM 8.8 mg/dL (8.4-10.2); CARBON DIOXIDE 28 mmol/L (22-30); CHLORIDE 104 mmol/L (98-107); GLUCOSE 83 mg/dL (75-110); POTASSIUM 4.5 mmol/L (3.6-5.0); SODIUM 141.9 mmol/L (137-145); TOTAL PROTEIN 6.8 g/dL (6.3-8.2)
--- NOTE | 2017-10-16 19:28 | PDOC PROGRESS REPORT ---
Subjective Progress Note for:: 10/16/17 Subjective:: Patient reports that facial swelling is improving. Patient states that he did have some drainage out of facial wound today. Reason For Visit: FACIAL CELLULITIS CONCERN FOR MRSA Physical Exam Vital Signs: Temp Pulse Resp BP Pulse Ox 98.4 F 92 16 132/81 H 99 10/16/17 16:40 10/16/17 16:40 10/16/17 16:40 10/16/17 16:40 10/16/17 16:40 Intake & Output 10/15/17 10/16/17 10/17/17 06:59 06:59 06:59 Intake Total 1871 240 Output Total 1600 Balance 271 240 Weight 73.4 kg General appearance: PRESENT: no acute distress, well-developed, well-nourished Head exam: PRESENT: atraumatic, normocephalic Eye exam: PRESENT: conjunctiva pink, EOMI. ABSENT: scleral icterus Ear exam: PRESENT: bleeding Mouth exam: PRESENT: moist, tongue midline Neck exam: ABSENT: carotid bruit, JVD, lymphadenopathy, thyromegaly Respiratory exam: PRESENT: clear to auscultation ankit. ABSENT: rales, rhonchi, wheezes Cardiovascular exam: PRESENT: RRR. ABSENT: diastolic murmur, rubs, systolic murmur Pulses: PRESENT: normal dorsalis pedis pul Vascular exam: PRESENT: normal capillary refill GI/Abdominal exam: PRESENT: normal bowel sounds, soft. ABSENT: distended, guarding, mass, organolmegaly, rebound, tenderness Rectal exam: PRESENT: deferred Extremities exam: PRESENT: full ROM. ABSENT: calf tenderness, clubbing, pedal edema Neurological exam: PRESENT: alert, awake, oriented to person, oriented to place , oriented to time, oriented to situation, CN II-XII grossly intact. ABSENT: motor sensory deficit Psychiatric exam: PRESENT: appropriate affect, normal mood. ABSENT: homicidal ideation, suicidal ideation Skin exam: PRESENT: dry, intact, rash, warm. ABSENT: cyanosis Results Laboratory Results: 10/16/17 05:35 10/16/17 05:35 10/16/17 10/16/17 05:35 05:35 WBC 6.4 RBC 4.24 L Hgb 12.5 L Hct 36.4 L MCV 86 MCH 29.5 MCHC 34.3 RDW 13.1 Plt Count 226 Seg Neutrophils % 77.4 Lymphocytes % 10.3 L Monocytes % 9.3 Eosinophils % 2.4 Basophils % 0.6 Absolute Neutrophils 5.0 Absolute Lymphocytes 0.7 Absolute Monocytes 0.6 Absolute Eosinophils 0.2 Absolute Basophils 0.0 Sodium 141.9 Potassium 4.5 Chloride 104 Carbon Dioxide 28 Anion Gap 10 BUN 13 Creatinine 0.73 Est GFR ( Amer) > 60 Est GFR (Non-Af Amer) > 60 Glucose 83 Calcium 8.8 Total Bilirubin 0.2 AST 26 ALT 46 Alkaline Phosphatase 54 Total Protein 6.8 Albumin 3.8 Impressions: Facial Bones CT 10/15/17 01:55 IMPRESSION: 1. Findings compatible with cellulitis in the left facial subcutaneous soft tissues. No well-circumscribed fluid collection to suggest abscess formation. This exam was performed according to our departmental dose-optimization program, which includes automated exposure control, adjustment of the mA and/or kV according to patient size and/or use of iterative reconstruction technique. Assessment & Plan - Diagnosis (1) Facial cellulitis Is this a current diagnosis for this admission?: Yes Plan: CT of face demonstrates soft tissue swelling but no evidence of abscess. Will continue clindamycin patient's facial cellulitis is improving.. (2) History of Clostridium difficile infection Is this a current diagnosis for this admission?: Yes Plan: Will place pt on Flagyl. Patient currently not reporting diarrhea. (3) IV drug abuse Is this a current diagnosis for this admission?: Yes Plan: Patient denies using street drugs however has history of IV drug abuse. (4) Tobacco dependency Is this a current diagnosis for this admission?: Yes Plan: Patient reports that he no longer smokes. Will readdress again in a.m. (5) DVT prophylaxis Is this a current diagnosis for this admission?: Yes Plan: SCDs - Time Time Spent with patient: 15-24 minutes
[2017-10-17] MEDS: CLINDAMYCIN 900 MG/D5W RTU 50 ML IV SCH ×2 (02:31→09:25)
[2017-10-17] MEDS: LANSOPRAZOLE 30 MG TAB.RAP.DR PO SCH (05:24)
[2017-10-17] MEDS: OXYCODONE-ACETAMINOPHEN 5-325 MG TABLET PO PRN ×2 (05:24→19:37)
[2017-10-17] MEDS: METRONIDAZOLE 500 MG TABLET PO SCH ×3 (05:24→21:49)
[2017-10-17 05:55] LABS: ABSOLUTE EOSINOPHILS # (AUTO) 0.2 10^3/uL (0.0-0.6); ABSOLUTE MONOCYTES (AUTO) 0.7 10^3/uL (0.1-1.4); ABSOLUTE NEUT (AUTO) 3.6 10^3/uL (1.7-8.2); BASOPHILS % (AUTO) 0.7 % (0-2); EOSINOPHILS % (AUTO) 3.7 % (0-6); HEMATOCRIT 37.1 % (37.9-51.0); HEMOGLOBIN 12.8 g/dL (13.5-17.0); LYMPHOCYTES % (AUTO) 17.6 % (13-45); MEAN CORPUSCULAR HEMOGLOBIN 29.6 pg (27.0-33.4); MEAN CORPUSCULAR HGB CONC 34.5 g/dL (32.0-36.0); MEAN CORPUSCULAR VOLUME 86 fl (80-97); MONOCYTES % (AUTO) 13.1 % (3-13); PLATELET COUNT 238 10^3/uL (150-450); RED BLOOD COUNT 4.32 10^6/uL (4.35-5.55); RED CELL DISTRIBUTION WIDTH 13.5 % (11.5-14.0); SEGMENTED NEUTROPHILS % (AUTO) 64.9 % (42-78); TOTAL CELLS COUNTED % (AUTO) 100 %; WHITE BLOOD COUNT 5.5 10^3/uL (4.0-10.5)
[2017-10-17 06:33] LABS: ALANINE AMINOTRANSFERASE 45 U/L (21-72); ALBUMIN 3.5 g/dL (3.5-5.0); ALKALINE PHOSPHATASE 51 U/L (38-126); ANION GAP 10 (5-19); ASPARTATE AMINO TRANSFERASE 25 U/L (17-59); BILIRUBIN,DIRECT 0.1 mg/dL (0.0-0.4); BILIRUBIN,TOTAL 0.2 mg/dL (0.2-1.3); BLOOD UREA NITROGEN 12 mg/dL (7-20); CALCIUM 8.8 mg/dL (8.4-10.2); CARBON DIOXIDE 28 mmol/L (22-30); CHLORIDE 102 mmol/L (98-107); GLUCOSE 95 mg/dL (75-110); SODIUM 140.1 mmol/L (137-145); TOTAL PROTEIN 6.5 g/dL (6.3-8.2)
[2017-10-17] MEDS: RINGERS SOLUTION,LACTATED 1,000 ML IV PRN (09:26)
--- NOTE | 2017-10-17 16:38 | PDOC PROGRESS REPORT ---
Subjective Progress Note for:: 10/17/17 Subjective:: Pt states that the swelling has decreased. Pt states that his face continues to have drainage. Reason For Visit: FACIAL CELLULITIS CONCERN FOR MRSA Physical Exam Vital Signs: Temp Pulse Resp BP Pulse Ox 98.2 F 99 18 145/91 H 100 10/17/17 15:43 10/17/17 15:43 10/17/17 15:43 10/17/17 15:43 10/17/17 15:43 Intake & Output 10/16/17 10/17/17 10/18/17 06:59 06:59 06:59 Intake Total 1871 3051 Output Total 1600 1400 Balance 271 1651 Weight 73.4 kg 76.8 kg General appearance: PRESENT: no acute distress, well-developed, well-nourished Head exam: PRESENT: atraumatic, normocephalic Eye exam: PRESENT: conjunctiva pink, EOMI. ABSENT: scleral icterus Ear exam: PRESENT: normal external ear exam Mouth exam: PRESENT: moist, tongue midline Neck exam: ABSENT: carotid bruit, JVD, lymphadenopathy, thyromegaly Respiratory exam: PRESENT: clear to auscultation ankit. ABSENT: rales, rhonchi, wheezes Cardiovascular exam: PRESENT: RRR. ABSENT: diastolic murmur, rubs, systolic murmur Pulses: PRESENT: normal dorsalis pedis pul Vascular exam: PRESENT: normal capillary refill GI/Abdominal exam: PRESENT: normal bowel sounds, soft. ABSENT: distended, guarding, mass, organolmegaly, rebound, tenderness Rectal exam: PRESENT: deferred Extremities exam: PRESENT: full ROM. ABSENT: calf tenderness, clubbing, pedal edema Musculoskeletal exam: PRESENT: full ROM Neurological exam: PRESENT: alert, awake, oriented to person, oriented to place , oriented to time, oriented to situation, CN II-XII grossly intact. ABSENT: motor sensory deficit Psychiatric exam: PRESENT: appropriate affect, normal mood. ABSENT: homicidal ideation, suicidal ideation Skin exam: PRESENT: other - Forehead lesion is improving. Patient's left cheek wound is less erythematous and indurated Results Laboratory Results: 10/17/17 05:12 10/17/17 05:12 10/17/17 10/17/17 05:12 05:12 WBC 5.5 RBC 4.32 L Hgb 12.8 L Hct 37.1 L MCV 86 MCH 29.6 MCHC 34.5 RDW 13.5 Plt Count 238 Seg Neutrophils % 64.9 Lymphocytes % 17.6 Monocytes % 13.1 H Eosinophils % 3.7 Basophils % 0.7 Absolute Neutrophils 3.6 Absolute Lymphocytes 1.0 Absolute Monocytes 0.7 Absolute Eosinophils 0.2 Absolute Basophils 0.0 Sodium 140.1 Potassium 4.0 Chloride 102 Carbon Dioxide 28 Anion Gap 10 BUN 12 Creatinine 0.73 Est GFR ( Amer) > 60 Est GFR (Non-Af Amer) > 60 Glucose 95 Calcium 8.8 Total Bilirubin 0.2 AST 25 ALT 45 Alkaline Phosphatase 51 Total Protein 6.5 Albumin 3.5 10/15/17 10:07 Face - Cheek Gram Stain - Final 10/15/17 10:07 Face - Cheek Wound Culture - Final Mrsa (Meth Resis Staph Aureus) Impressions: Facial Bones CT 10/15/17 01:55 IMPRESSION: 1. Findings compatible with cellulitis in the left facial subcutaneous soft tissues. No well-circumscribed fluid collection to suggest abscess formation. This exam was performed according to our departmental dose-optimization program, which includes automated exposure control, adjustment of the mA and/or kV according to patient size and/or use of iterative reconstruction technique. Assessment & Plan - Diagnosis (1) Facial cellulitis Is this a current diagnosis for this admission?: Yes Plan: Secondary to MRSA cellulitis: Patient is resistant to clindamycin therefore will place patient on vancomycin. His face however has still demonstrated improvement. (2) History of Clostridium difficile infection Is this a current diagnosis for this admission?: Yes Plan: Empiric Flagyl. (3) IV drug abuse Is this a current diagnosis for this admission?: Yes Plan: Patient denies using street drugs however has history of IV drug abuse. (4) Tobacco dependency Is this a current diagnosis for this admission?: Yes Plan: Patient reports that he no longer uses tobacco products. (5) DVT prophylaxis Is this a current diagnosis for this admission?: Yes Plan: SCDs - Time Time Spent with patient: 15-24 minutes
[2017-10-17] MEDS ORDERED: VANCOMYCIN HCL 0 MG in DEXTROSE 5%-WATER 250 ML IV NR (16:45)
[2017-10-17] MEDS ORDERED: VANCOMYCIN HCL INJ 1000 MG VIAL IV PRN (17:36)
[2017-10-17] MEDS ORDERED: VANCOMYCIN HCL INJ 1000 MG VIAL ONE ×2 (18:35→21:55)
[2017-10-17] MEDS: VANCOMYCIN HCL 1,250 MG in DEXTROSE 5%-WATER 250 ML IV SCH (19:32)
[2017-10-17] MEDS ORDERED: CLONIDINE HCL 0.1 MG TABLET PO PRN (19:50)
[2017-10-17] MEDS ORDERED: VANCOMYCIN HCL INJ 500 MG VIAL ONE (21:55)
[2017-10-18] MEDS: VANCOMYCIN HCL 1,250 MG in DEXTROSE 5%-WATER 250 ML IV SCH (01:06)
[2017-10-18] MEDS: LANSOPRAZOLE 30 MG TAB.RAP.DR PO SCH (05:23)
[2017-10-18] MEDS: METRONIDAZOLE 500 MG TABLET PO SCH ×2 (05:23→13:22)
[2017-10-18 06:47] LABS: ABSOLUTE EOSINOPHILS # (AUTO) 0.2 10^3/uL (0.0-0.6); ABSOLUTE LYMPHOCYTES (AUTO) 0.8 10^3/uL (0.5-4.7); ABSOLUTE MONOCYTES (AUTO) 0.8 10^3/uL (0.1-1.4); ABSOLUTE NEUT (AUTO) 5.2 10^3/uL (1.7-8.2); BASOPHILS % (AUTO) 0.7 % (0-2); EOSINOPHILS % (AUTO) 2.8 % (0-6); HEMATOCRIT 40.3 % (37.9-51.0); HEMOGLOBIN 13.5 g/dL (13.5-17.0); LYMPHOCYTES % (AUTO) 11.9 % (13-45); MEAN CORPUSCULAR HEMOGLOBIN 28.9 pg (27.0-33.4); MEAN CORPUSCULAR HGB CONC 33.4 g/dL (32.0-36.0); MEAN CORPUSCULAR VOLUME 86 fl (80-97); MONOCYTES % (AUTO) 11.2 % (3-13); PLATELET COUNT 261 10^3/uL (150-450); RED BLOOD COUNT 4.67 10^6/uL (4.35-5.55); RED CELL DISTRIBUTION WIDTH 13.4 % (11.5-14.0); SEGMENTED NEUTROPHILS % (AUTO) 73.4 % (42-78); TOTAL CELLS COUNTED % (AUTO) 100 %; WHITE BLOOD COUNT 7.1 10^3/uL (4.0-10.5)
[2017-10-18 07:08] LABS: ANION GAP 12 (5-19); BLOOD UREA NITROGEN 15 mg/dL (7-20); CALCIUM 8.8 mg/dL (8.4-10.2); CARBON DIOXIDE 28 mmol/L (22-30); CHLORIDE 100 mmol/L (98-107); GLUCOSE 114 mg/dL (75-110); POTASSIUM 4.2 mmol/L (3.6-5.0); SODIUM 139.5 mmol/L (137-145)
[2017-10-18] MEDS ORDERED: VANCOMYCIN HCL 1,000 MG in DEXTROSE 5%-WATER 250 ML IV SCH (10:00)
--- NOTE | 2017-10-18 15:05 | PDOC DISCHARGE SUMMARY ---
General - Admit/Disc Date/PCP Admission Date/Primary Care Provider: 10/15/17 04:56 Discharge Date: 10/18/17 - Discharge Diagnosis (1) Facial cellulitis Is this a current diagnosis for this admission?: Yes Summary: Will place pt on Bactrim DS 2 tabs PO BID for 10 days. (2) History of Clostridium difficile infection Is this a current diagnosis for this admission?: Yes Summary: Will place pt on Flagyl while on Bactrim. (3) IV drug abuse Is this a current diagnosis for this admission?: Yes Summary: History of use Benzodiazepines, amphetamine, THC, and Opioid (4) Tobacco dependency Is this a current diagnosis for this admission?: Yes Summary: Encourage discontinuation of tobacco use. - Additional Information Resuscitation Status: Full Code Discharge Diet: Regular Discharge Activity: Activity As Tolerated Prescriptions: Sulfamethoxazole/Trimethoprim [Bactrim Ds Tablet] 2 each PO BID #40 tablet Home Medications: Sulfamethoxazole/Trimethoprim [Bactrim Ds Tablet] 2 each PO BID #40 tablet 10/18 History of Present Illness Patient complains of: Facial Cellulitis History of Present Illness: DRE BALL is a 41 year old male with history of MRSA presents to the emergency room with 3 day history of left facial swelling. Patient reports that he had a bump on his face that had pus in it and shortly after that the infection spread. Patient also reports that he also has a lesion on his forehead as well. Patient denies any nausea vomiting. Patient also denies any dental issues. Patient reports that he has been diagnosed with MRSA in the past. Patient reports that he is having pain of 4 out of 10. Hospital Course Hospital Course: Pt is a 41 year old male who presented to the hospital with complaint of left side facial cellulitis. Pt states that it has been draining for a while. Pt states that he was placed on antibiotic but had only taken for a few days. Pt was given Vancomycin and clindamycin. Pt was found to be resistant to clindamycin. Pt was continued on Vancomycin and transitioned to Bactrim. Physical Exam Vital Signs: Temp Pulse Resp BP Pulse Ox 98.1 F 86 16 108/74 100 10/18/17 11:00 10/18/17 11:00 10/18/17 11:00 10/18/17 11:00 10/18/17 11:00 Intake & Output 10/17/17 10/18/17 10/19/17 06:59 06:59 06:59 Intake Total 3051 1532 Output Total 1400 1950 Balance 1651 -418 Weight 76.8 kg 76.5 kg General appearance: PRESENT: no acute distress, well-developed, well-nourished Head exam: PRESENT: atraumatic, normocephalic Eye exam: PRESENT: conjunctiva pink, EOMI, PERRLA. ABSENT: scleral icterus Ear exam: PRESENT: normal external ear exam Mouth exam: PRESENT: moist, tongue midline Neck exam: ABSENT: carotid bruit, JVD, lymphadenopathy, thyromegaly Respiratory exam: PRESENT: clear to auscultation ankit. ABSENT: rales, rhonchi, wheezes Cardiovascular exam: PRESENT: RRR. ABSENT: diastolic murmur, rubs, systolic murmur Pulses: PRESENT: normal dorsalis pedis pul Vascular exam: PRESENT: normal capillary refill GI/Abdominal exam: PRESENT: normal bowel sounds, soft. ABSENT: distended, guarding, mass, organolmegaly, rebound, tenderness Rectal exam: PRESENT: deferred Extremities exam: PRESENT: full ROM. ABSENT: calf tenderness, clubbing, pedal edema Neurological exam: PRESENT: alert, awake, oriented to person, oriented to place , oriented to time, oriented to situation, CN II-XII grossly intact. ABSENT: motor sensory deficit Psychiatric exam: PRESENT: appropriate affect, normal mood. ABSENT: homicidal ideation, suicidal ideation Skin exam: PRESENT: other - + left facial/cheek area with minimal erythema. Results Laboratory Results: 10/18/17 05:31 10/18/17 05:31 10/18/17 10/18/17 05:31 05:31 WBC 7.1 RBC 4.67 Hgb 13.5 Hct 40.3 MCV 86 MCH 28.9 MCHC 33.4 RDW 13.4 Plt Count 261 Seg Neutrophils % 73.4 Lymphocytes % 11.9 L Monocytes % 11.2 Eosinophils % 2.8 Basophils % 0.7 Absolute Neutrophils 5.2 Absolute Lymphocytes 0.8 Absolute Monocytes 0.8 Absolute Eosinophils 0.2 Absolute Basophils 0.0 Sodium 139.5 Potassium 4.2 Chloride 100 Carbon Dioxide 28 Anion Gap 12 BUN 15 Creatinine 0.72 Est GFR ( Amer) > 60 Est GFR (Non-Af Amer) > 60 Glucose 114 H Calcium 8.8 10/15/17 10:07 Face - Cheek Gram Stain - Final 10/15/17 10:07 Face - Cheek Wound Culture - Final Mrsa (Meth Resis Staph Aureus) Impressions: Facial Bones CT 10/15/17 01:55 IMPRESSION: 1. Findings compatible with cellulitis in the left facial subcutaneous soft tissues. No well-circumscribed fluid collection to suggest abscess formation. This exam was performed according to our departmental dose-optimization program, which includes automated exposure control, adjustment of the mA and/or kV according to patient size and/or use of iterative reconstruction technique. Plan Time Spent: Greater than 30 Minutes
[2017-10-18 15:09] VITALS: BP 138/86
[2017-10-19] MEDS ORDERED: LANSOPRAZOLE 30 MG TAB.RAP.DR PO SCH (06:00)
== END 2017-10-18 15:42 | disposition home or self-care (01) | DRG 603 ==
LOC: ER 00:34 → EH 04:56 → 4S 19:10
PROVIDERS: ADMIT Internal Medicine; ATTEND Internal Medicine
DX: L03.211 Cellulitis of face (principal); B95.62 Methicillin resistant Staphylococcus aureus infection as the cause of diseases classified elsewhere; F17.200 Nicotine dependence, unspecified, uncomplicated; Z82.49 Family history of ischemic heart disease and other diseases of the circulatory system; Z86.59 Personal history of other mental and behavioral disorders; Z86.14 Personal history of Methicillin resistant Staphylococcus aureus infection; Z16.39 Resistance to other specified antimicrobial drug
CPT/HCPCS: 36415; 70487; 80048; 80053; 80307; 83036; 83605; 85025; 85610; 85730; 87040; 87070; 87077; 87186; 87205; 96365; 96375; 99285; J1170; J2405; J3370; J7030; J7060; J7120

== ENCOUNTER 2017-11-18 21:55 | Emergency (ER) | payer BC ==
[2017-11-18 22:01] VITALS: BP 130/88
[2017-11-18] MEDS ORDERED: SULFAMETHOXAZOLE/TRIMETHOPRIM 800-160 MG TABLET PO ONE ×2 (23:02→23:03)
--- NOTE | 2017-11-18 23:02 | ER Document Report ---
ED Skin Rash/Insect Bite/Abscs - General Chief Complaint: Wound Infection Stated Complaint: POSSIBLE INFECTION ON FACE Time Seen by Provider: 11/18/17 22:51 Mode of Arrival: Ambulatory Information source: Patient TRAVEL OUTSIDE OF THE [place] IN LAST 30 DAYS: No - HPI Patient complains to provider of: Tender/swollen area Onset: Last week Onset/Duration: Gradual Quality of pain: Pressure Severity: Moderate Pain Level: 3 Skin Character: Erythema, Tenderness Skin Temperature: Warm Quality of rash: Painful Exacerbated by: Denies Relieved by: Denies Similar symptoms previously: Yes Recently seen / treated by doctor: No Notes: Patient is a 41-year-old male presenting to the emergency room complaining of redness and swelling to his nose with purulent drainage, states he sustained an injury when a window fell on his nose less sometime last week, the next morning he woke up in had some redness and swelling, 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 which caused him to be admitted in the past, he has squeezed the area and gotten a small amount of purulent drainage out, he has also been taking Bactrim at home that is left over from a previous prescription , however he is taking 1 tablet 3 times a day instead of the 2 tablets twice daily as directed, he reports subjective fevers - Related Data Allergies/Adverse Reactions: haloperidol [From Haldol] Adverse Reaction (Verified 10/15/17 00:36) Dystonia prochlorperazine [From Compazine] Adverse Reaction (Verified 10/15/17 00:36) Dystonia Past Medical History - General Information source: Patient - Social History Smoking Status: Unknown if Ever Smoked Family History: Hypertension - Mother, Other - Patient does not know his father' s past medical history - Past Medical History Cardiac Medical History: Denies: Hx Atrial Fibrillation, Hx Congestive Heart Failure, Hx Coronary Artery Disease, Hx DVT, Hx Heart Attack, Hx Hypercholesterolemia, Hx Hypertension, Hx Pulmonary Embolism Pulmonary Medical History: Denies: Hx Asthma, Hx COPD, Hx Sleep Apnea Neurological Medical History: Reports: Hx Seizures - Childhood epilepsy; 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 No antiepileptic. Endocrine Medical History: Denies: Hx Diabetes Mellitus Type 1, Hx Diabetes Mellitus Type 2, Hx Hyperthyroidism, Hx Hypothyroidism Renal/ Medical History: Denies: Hx Peritoneal Dialysis GI Medical History: Denies: Hx Cirrhosis, Hx Gastroesophageal Reflux Disease, Hx Hepatitis Musculoskeltal Medical History: Denies Hx Arthritis Skin Medical History: Reports Hx MRSA Psychiatric Medical History: Denies: Hx Depression Infectious Medical History: Reports: Hx C-Diff. Denies: Hx Hepatitis, Hx MRSA Past Surgical History: Reports: Other - [place] teeth extraction, abscess to right AC - Immunizations Hx Diphtheria, Pertussis, Tetanus Vaccination: Yes Review of Systems - Review of Systems Constitutional: No symptoms reported EENT: See HPI Cardiovascular: No symptoms reported Respiratory: No symptoms reported Gastrointestinal: No symptoms reported Genitourinary: No symptoms reported Male Genitourinary: No symptoms reported Musculoskeletal: No symptoms reported Skin: See HPI Hematologic/Lymphatic: No symptoms reported Neurological/Psychological: No symptoms reported -: Yes All other systems reviewed and negative Physical Exam - Vital signs Vitals: Temp Pulse Resp BP Pulse Ox 98.6 F 101 H 20 130/88 H 97 11/18/17 22:00 11/18/17 22:00 11/18/17 22:00 11/18/17 22:00 11/18/17 22:00 Interpretation: Normal - General General appearance: Appears well, Alert - HEENT Head: Normocephalic, Atraumatic Eyes: Normal Conjunctiva: Normal Extraocular movements intact: Yes Eyelashes: Normal Pupils: PERRL Nasal: Other - Erythema and mild swelling to the bridge of the nose with a 1 cm area of scabbing more distally, small amount of purulent drainage from this area , mild tenderness to palpate, no fluctuance Pharynx: Normal Neck: Normal - Respiratory Respiratory status: No respiratory distress Chest status: Nontender Breath sounds: Normal Chest palpation: Normal - Cardiovascular Rhythm: Regular Heart sounds: Normal auscultation Murmur: No - Abdominal Inspection: Normal Distension: No distension Bowel sounds: Normal Tenderness: Nontender Organomegaly: No organomegaly - Back Back: Normal, Nontender - Extremities General upper extremity: Normal inspection, Nontender, Normal color, Normal ROM , Normal temperature General lower extremity: Normal inspection, Nontender, Normal color, Normal ROM , Normal temperature, Normal weight bearing. No: Pema's sign - Neurological Neuro grossly intact: Yes Cognition: Normal Orientation: AAOx4 Angie Coma Scale Eye Opening: Spontaneous Hurricane Coma Scale Verbal: Oriented Angie Coma Scale Motor: Obeys Commands Angie Coma Scale Total: 15 Speech: Normal Motor strength normal: LUE, RUE, LLE, RLE Sensory: Normal - Psychological Associated symptoms: Normal affect, Normal mood - Skin Skin Temperature: Warm Skin Moisture: Dry Skin Color: Normal Course - Re-evaluation Re-evalutation: 11/18/17 23:09 Physical exam findings consistent with cellulitis to the nose, small amount of active purulent drainage from a scabbed area, patient has a history of MRSA cellulitis in the past and has been admitted to in the past as well, on exam patient is nontoxic-appearing, there is cellulitis to the nose with a small amount of drainage, no area of fluctuance or drainable abscess at this point in time, patient will be given a prescription for proper dosing of Bactrim, advised to apply warm compresses, I did discuss the possibility of admission at this point in time, however patient was agreeable with outpatient therapy with antibiotics, agrees to return immediately if symptoms worsen or fail to improve over the next 2-3 days, patient acknowledges understanding and agreement with this plan - Vital Signs Vital signs: Temp Pulse Resp BP Pulse Ox 98.6 F 101 H 20 130/88 H 97 11/18/17 22:00 11/18/17 22:00 11/18/17 22:00 11/18/17 22:00 11/18/17 22:00 Discharge - Discharge Clinical Impression: Facial cellulitis Condition: Stable Disposition: HOME, SELF-CARE Instructions: MRSA Cellulitis ([facility]), Soap Cleansing ([facility]) Additional Instructions: Follow up with your primary care provider in one to 2 days. Return to the emergency room immediately if symptoms worsen or any additional concerns. Prescriptions: Sulfamethoxazole/Trimethoprim [Bactrim Ds Tablet] 1 each PO BID #20 tablet Sulfamethoxazole/Trimethoprim [Bactrim Ds Tablet] 2 each PO BID #40 tablet
== END 2017-11-18 23:10 | disposition home or self-care (01) ==
LOC: ER 21:55
DX: L03.211 Cellulitis of face (principal); Z86.14 Personal history of Methicillin resistant Staphylococcus aureus infection
CPT/HCPCS: 99282

== ENCOUNTER 2019-04-13 20:17 | Emergency (ER) | payer BC ==
[2019-04-13 20:23] VITALS: BP 173/105
== END 2019-04-13 21:55 | disposition left against medical advice (07) ==
LOC: ER 20:17
DX: Z53.21 Procedure and treatment not carried out due to patient leaving prior to being seen by health care provider (principal)